=== PATIENT | male | born 1960 | race Caucasian/White ===

== ENCOUNTER 2017-02-15 07:41 | Outpatient (CLI) | payer MEDICAID | END 2017-02-15 07:42 | disposition critical access hospital (66) | LOC: EMS 07:41 | PROVIDERS: ATTEND Surgery | DX: R06.00 Dyspnea, unspecified (principal) | CPT/HCPCS: A0425; A0427 ==

== ENCOUNTER 2017-02-15 07:54 | Inpatient (IN) | payer MEDICAID ==
--- NOTE | 2017-02-15 08:01 | ED Physician Documentation ---
History of Present Illness - Stated complaint Stated Complaint: SOA - Additonal information Additional information: hx from pt and EMS 57 male per EMS was dx with lung cancer a year ago, non operable, txed with chemo, was told he was terminal with life expectancy 3-6 months but he has passed that time frame per pt no POLST all his care has been at [facility] he has been getting gradually more SOA but today acutely worse no fever cough no pain no hx COPD some relief en route with neb and being treated for c diff Review of Systems Constitutional: denies: Fever, Chills Cardiac: denies: Chest pain / pressure Respiratory: reports: Dyspnea, Wheezing. denies: Cough GI: denies: Abdominal Pain, Nausea, Vomiting Musculoskeletal: reports: Extremity swelling (ankles, pt states he has been checked for DVT several times and edema may be 2/2 chemo) Endocrine: denies: Easy bruising / bleeding Immunocompromised: reports: Immunocompromised (chemo) PD PAST MEDICAL HISTORY - Past Surgical History Past Surgical History: Yes - Present Medications Home Medications: Ambulatory Orders Medication Instructions Recorded Confirmed Ibuprofen 800 mg PO Q6HR 09/18/15 02/15/17 Albuterol Sulfate [Proair Hfa 1 puffs INH Q4H PRN 02/15/17 02/15/17 Inhaler] Gabapentin [Gabapentin] 600 mg PO TID 02/15/17 02/15/17 Hydrochlorothiazide 25 mg PO DAILY 02/15/17 02/15/17 [Hydrochlorothiazide] Megestrol Acetate 800 mg PO DAILY 02/15/17 02/15/17 Temazepam [Temazepam] 15 mg PO DAILY PM PRN 02/15/17 02/15/17 fentaNYL 25 MCG PATCH [Duragesic 1 patch TOP Q72H 02/15/17 02/15/17 25mcg] metroNIDAZOLE [Flagyl] 500 mg PO TID 02/15/17 02/15/17 oxyCODONE [Roxicodone] 10 mg PO Q4H PRN 02/15/17 02/15/17 - Allergies Allergies/Adverse Reactions: Allergies Allergy/AdvReac Type Severity Reaction Status Date / Time Penicillins Allergy Respiratory Verified 09/18/15 18:33 - Social History Does the pt smoke?: Yes Smoking Status: Former smoker Does the pt drink ETOH?: Yes Does the pt have substance abuse?: No - Immunizations Immunizations are current?: No Immunizations: TDAP >10years/unknown PD ED PE NORMAL - Vitals Vital signs reviewed: Yes - General General: Alert and oriented X 3, Other (resp distress, anxious) - Neck Neck: Supple, no meningeal sign - Cardiac Cardiac: RRR - Respiratory Respiratory: Other (marked resp distress, labored, very dec on R less dec on L, jaclyn rales and wheezing) - Abdomen Abdomen: Soft, Non tender - Derm Derm: Normal color - Extremities Extremities: No calf tenderness / cord. No: No edema (jaclyn ankle edema - pt states checked for DVT several times) - Neuro Neuro: Alert and oriented X 3 Results - Vitals Vitals: Vital Signs - 24 hr 02/15/17 02/15/17 02/15/17 08:00 08:02 08:35 Temperature 36.6 C Heart Rate 124 H 128 H 124 H Respiratory 34 H 36 H Rate Blood Pressure 138/91 H O2 Saturation 94 02/15/17 02/15/17 02/15/17 09:06 09:36 09:40 Temperature Heart Rate 124 H 121 H 120 H Respiratory 24 Rate Blood Pressure 113/82 H 114/69 O2 Saturation 100 97 02/15/17 10:04 Temperature Heart Rate 120 H Respiratory 30 H Rate Blood Pressure 116/73 O2 Saturation 98 Oxygen O2 Source BIPAP Oxygen Flow Rate 5 - Labs Labs: Microbiology 02/15/17 08:25 Respiratory Culture - Preliminary Sputum Laboratory Tests 02/15/17 02/15/17 02/15/17 08:27 08:27 08:27 WBC 11.5 H RBC 4.39 L Hgb 12.0 L Hct 35.7 L MCV 81.3 MCH 27.3 MCHC 33.5 RDW 17.3 H Plt Count 462 H MPV 6.8 L Neut # 9.9 H Lymph # 0.4 L Roosevelt # 1.1 H Eos # 0.1 Baso # 0.1 Absolute Nucleated RBC 0.03 Nucleated RBCs 0.2 Bld Gas Analysis Time Sample Site ABG pH ABG pCO2 ABG pO2 ABG HCO3 ABG Total CO2 ABG O2 Saturation ABG Base Excess Juan Test O2 Delivery Device FiO2 EPAP IPAP Sodium 127 L Potassium 2.5 L* Chloride 87 L Carbon Dioxide 29 Anion Gap 11.0 BUN 11 Creatinine 0.7 Estimated GFR (MDRD) 116 Glucose 115 H Lactic Acid Calcium 8.5 Troponin I < 0.04 B-Natriuretic Peptide 02/15/17 02/15/17 02/15/17 08:27 08:27 09:37 WBC RBC Hgb Hct MCV MCH MCHC RDW Plt Count MPV Neut # Lymph # Roosevelt # Eos # Baso # Absolute Nucleated RBC Nucleated RBCs Bld Gas Analysis Time 0942 Sample Site RIGHT RADIAL ABG pH 7.55 H ABG pCO2 32 L ABG pO2 118 H ABG HCO3 27.3 H ABG Total CO2 28.2 ABG O2 Saturation 99 H ABG Base Excess 5.3 H Juan Test POSITIVE O2 Delivery Device BiPAP FiO2 35.00 EPAP 5 IPAP 12 Sodium Potassium Chloride Carbon Dioxide Anion Gap BUN Creatinine Estimated GFR (MDRD) Glucose Lactic Acid 0.9 Calcium Troponin I B-Natriuretic Peptide 66 - Rads (name of study) CXR Radiology: See rad report (RUL, R suprahilar mass, NEREYDA and L midlung mass, diffuse reticular nodular appearance, small jaclyn effusons, volume loss right lung ) PD MEDICAL DECISION MAKING - ED course ED course: obtained records from [facility] and PMD seems pt was dx with cancer September 2015 onc note states stage IV non small cell R hilar, mediastinal nodes, bony mets, SVC encasement/obstruction, subsequent CTs showed progression, intial tx with opdivo now on keytruda some improvement with nebs but still sig and severe resp distress, placed on BiPAP with good relief will need admit seen by Dr Martin and admitted while waiting for bed pt told nurse and then me that he tripped and fell yesterday - no head neck injury but low left back pain, has a fentanyl patch but still very uncomfortable, went to see pt, no bony pain, soft tissue TTP L flank s ecchymosis or selling, will apply lido patch and give a dose of dilaudid and check UA for blood, pt also then mentioned his stools have been dark, not visibly bloody, H/H fine, would rec occult blood stools while admitted Departure - Departure Disposition: 66 [facility] DC/Xfer Clinical Impression: Hypokalemia, C. difficile colitis Respiratory failure Qualifiers: Chronicity: acute Respiratory failure complication: unspecified whether with hypoxia or hypercapnia Qualified Code(s): J96.00 - Acute respiratory failure, unspecified whether with hypoxia or hypercapnia Lung cancer Qualifiers: Laterality: unspecified laterality Lung location: unspecified part of lung Qualified Code(s): C34.90 - Malignant neoplasm of unspecified part of unspecified bronchus or lung Discharge Date/Time: 02/15/17 11:50
[2017-02-15] MEDS: ALBUTEROL NEB 2.5 MG/3 ML INH STA ×2 (08:12→09:31)
[2017-02-15] MEDS ORDERED: ALBUTEROL NEB 2.5 MG/3 ML INH ONE (08:13)
[2017-02-15 08:36] LABS: BASOPHILS # (AUTO) 0.1 10^3/uL (0.0-0.1); BASOPHILS % (AUTO) 0.7 %; EOSINOPHILS # (AUTO) 0.1 10^3/uL (0.0-0.7); EOSINOPHILS % (AUTO) 1.1 %; HCT - HEMATOCRIT 35.7 % (42.0-52.0); LYMPHOCYTES # (AUTO) 0.4 10^3/uL (1.5-3.5); LYMPHOCYTES % (AUTO) 3.4 %; MEAN CORPUSCULAR HEMOGLOBIN 27.3 pg (27.0-31.0); MEAN CORPUSCULAR HGB CONC 33.5 g/dL (32.0-36.0); MEAN CORPUSCULAR VOLUME 81.3 fL (80.0-94.0); MEAN PLATELET VOLUME 6.8 fL (7.4-11.4); MONOCYTES # (AUTO) 1.1 10^3/uL (0.0-1.0); MONOCYTES % (AUTO) 9.1 %; NEUTROPHILS # (AUTO) 9.9 10^3/uL (1.5-6.6); NEUTROPHILS % (AUTO) 85.7 %; NUCLEATED RED BLOOD CELLS AUTO 0.2 /100WBC; RED BLOOD COUNT 4.39 10^6/uL (4.70-6.10); RED CELL DISTRIBUTION WIDTH 17.3 % (12.0-15.0); UNCORRECTED WHITE BLOOD COUNT 11.5 x10^3/uL; WHITE BLOOD COUNT 11.5 x10^3/uL (4.8-10.8)
--- NOTE | 2017-02-15 08:36 | XRAY Preliminary Report ---
Exam: XR Chest 1 View IMPRESSION: 1. Right upper lobe, right suprahilar lung mass. Left upper lobe, left midlung mass. 2. Diffuse reticular nodular appearance.. 3. Small bilateral effusions. 4. Volume loss right lung [facility] SITE ID: [id number]
--- NOTE | 2017-02-15 08:38 | XRAY Report ---
EXAM: CHEST RADIOGRAPHY EXAM DATE: 02/15/2017 08:20 AM. CLINICAL HISTORY: Shortness of breath known lung cancer. COMPARISON: None. TECHNIQUE: 1 view. FINDINGS: Lungs/Pleura: Right upper lobe apical density adjacent to right suprahilar mass. Clips or markers in the right upper lung field. Volume loss right chest. Elevated right hemidiaphragm. Diffuse bilateral reticulonodular densities. 3.3 cm left midlung density. 1.8 cm left upper lung density. Small bilateral effusions Mediastinum: Within exam limitations, cardiomediastinal contour is normal. Other: None. IMPRESSION: 1. Right upper lobe, right suprahilar lung mass. Left upper lobe, left midlung mass. 2. Diffuse reticular nodular appearance.. 3. Small bilateral effusions. 4. Volume loss right lung [facility] Referring Provider Line: [phone] SITE ID: [id number]
[2017-02-15 08:47] LABS: CALCIUM 8.5 mg/dL (8.5-10.3); CREATININE 0.7 mg/dL (0.6-1.2); POTASSIUM 2.5 mmol/L (3.5-5.0)
[2017-02-15] MEDS ORDERED: POTASSIUM CHLOR 10 MEQ/100 ML 100 ML IV ONE ×2 (09:08→09:18)
[2017-02-15] MEDS: POTASSIUM CHLORIDE 20 MEQ TABLET PO STA ×2 (09:28→17:39)
[2017-02-15] MEDS ORDERED: POTASSIUM CHLORIDE 20 MEQ TABLET PO ONE (09:31)
[2017-02-15 09:42] LABS: ABG BASE EXCESS 5.3 mmol/L (-2.0-3.0); ABG EXPIRATORY POS AIRWAY P 5 cmH2O; ABG HCO3 27.3 mmol/L (22.0-26.0); ABG INSPIRATORY POS AIRWAY P 12 cmH2O; ABG O2 DEVICE BiPAP; ABG OXYGEN SATURATION 99 % (94-98); ABG PCO2 32 mmHg (34-45); ABG PH 7.55 (7.35-7.45); ABG PO2 118 mmHg (80-100); ABG SITE OF DRAW RIGHT RADIAL; ABG TCO2 28.2 MMOL/L (21.0-29.0); ALLEN TEST POSITIVE
[2017-02-15] MEDS ORDERED: SODIUM CHLORIDE FLUSH 0.9% 10 ML SYRINGE IVP PRN (10:24)
[2017-02-15] MEDS ORDERED: ONDANSETRON 4 MG/2 ML VIAL IVP PRN (10:24)
[2017-02-15] MEDS ORDERED: ACETAMINOPHEN 325 MG TABLET PO PRN (10:24)
[2017-02-15] MEDS ORDERED: methylPREDNISolone SUCCINATE 125 MG/2 ML VIAL IVP STA (10:49)
[2017-02-15 11:20] LABS: BILIRUBIN,URINE NEGATIVE (NEGATIVE); UA CHARGE (STRIP ONLY) YES; UR CULTURE IF IND NOT INDICATED
[2017-02-15] MEDS ORDERED: LIDOCAINE PATCH 5% TOP STA (11:20)
[2017-02-15] MEDS: HYDROmorphone 1 MG/ML SYRINGE IVP STA ×2 (11:31→16:38)
[2017-02-15] MEDS ORDERED: LIDOCAINE PATCH 5% TOP ONE (11:32)
[2017-02-15] MEDS ORDERED: SODIUM CHLORIDE FLUSH 0.9% 10 ML SYRINGE IVP ONE (11:32)
[2017-02-15] MEDS ORDERED: HYDROmorphone 1 MG/ML SYRINGE ONE (11:32)
[2017-02-15] MEDS: NS W/20 MEQ KCL 1,000 ML IV SCH ×2 (12:24→21:08)
[2017-02-15] MEDS: PANTOPRAZOLE 40 MG VIAL IVP SCH (12:25)
[2017-02-15] MEDS: ENOXAPARIN 40 MG/0.4 ML SYRINGE SUBQ SCH (12:26)
[2017-02-15] MEDS: IPRATROPIUM/ALBUTEROL 3 ML NEB INH SCH ×3 (12:58→20:26)
[2017-02-15] MEDS: ALBUTEROL NEB 2.5 MG/3 ML INH SCH ×3 (12:59→20:26)
[2017-02-15] MEDS ORDERED: POTASSIUM CHLORIDE 20 MEQ TABLET PO STA (14:40)
[2017-02-15] MEDS: GABAPENTIN 300 MG CAPSULE PO SCH ×2 (15:13→21:09)
[2017-02-15] MEDS: metroNIDAZOLE 250 MG TABLET PO SCH ×2 (15:15→21:09)
[2017-02-15] MEDS: SODIUM CHLORIDE FLUSH 0.9% 10 ML SYRINGE IVP SCH ×2 (15:15→21:09)
[2017-02-15] MEDS: methylPREDNISolone SUCCINATE 40 MG/ML VIAL IVP SCH ×2 (17:39→21:09)
[2017-02-15] MEDS ORDERED: CHLORHEXIDINE GLUCONATE 15 ML UDC PO SCH (21:00)
[2017-02-15] MEDS: CHLORHEXIDINE GLUCONATE 15 ML UDC PO SCH (21:09)
[2017-02-15] MEDS: oxyCODONE 5 MG TABLET PO PRN (21:10)
[2017-02-15] MEDS: TEMAZEPAM 15 MG CAPSULE PO PRN (22:36)
[2017-02-16] MEDS: IPRATROPIUM/ALBUTEROL 3 ML NEB INH SCH ×5 (00:52→19:30)
[2017-02-16] MEDS: LORazepam 0.5 MG TABLET PO PRN (01:24)
[2017-02-16 05:31] LABS: BASOPHILS % (AUTO) 0.2 %; HCT - HEMATOCRIT 33.3 % (42.0-52.0); HGB - HEMOGLOBIN 11.1 g/dL (14.0-18.0); LYMPHOCYTES % (AUTO) 1.8 %; MEAN CORPUSCULAR HEMOGLOBIN 27.7 pg (27.0-31.0); MEAN CORPUSCULAR HGB CONC 33.4 g/dL (32.0-36.0); MEAN CORPUSCULAR VOLUME 82.7 fL (80.0-94.0); MEAN PLATELET VOLUME 7.1 fL (7.4-11.4); MONOCYTES % (AUTO) 4.3 %; NEUTROPHILS % (AUTO) 93.7 %; RED BLOOD COUNT 4.03 10^6/uL (4.70-6.10); UNCORRECTED WHITE BLOOD COUNT 7.3 x10^3/uL; WHITE BLOOD COUNT 7.3 x10^3/uL (4.8-10.8)
[2017-02-16 05:36] LABS: ALBUMIN/GLOBULIN RATIO 1.1 (1.0-2.2); BILIRUBIN,TOTAL 0.3 mg/dL (0.2-1.0); CALCIUM 8.4 mg/dL (8.5-10.3); CREATININE 0.6 mg/dL (0.6-1.2); MAGNESIUM 1.8 mg/dL (1.7-2.8); PHOSPHORUS 2.4 mg/dL (2.5-4.6); POTASSIUM 4.4 mmol/L (3.5-5.0); TOTAL PROTEIN 5.8 g/dL (6.7-8.2)
[2017-02-16] MEDS: GABAPENTIN 300 MG CAPSULE PO SCH ×3 (06:06→21:27)
[2017-02-16] MEDS: oxyCODONE 5 MG TABLET PO PRN ×3 (06:07→18:17)
[2017-02-16] MEDS: SODIUM CHLORIDE FLUSH 0.9% 10 ML SYRINGE IVP SCH ×3 (06:07→21:28)
[2017-02-16] MEDS: methylPREDNISolone SUCCINATE 40 MG/ML VIAL IVP SCH ×3 (06:07→21:27)
[2017-02-16] MEDS: metroNIDAZOLE 250 MG TABLET PO SCH ×3 (06:07→21:27)
[2017-02-16] MEDS: PANTOPRAZOLE 40 MG VIAL IVP SCH (06:13)
--- NOTE | 2017-02-16 06:20 | HISTORY & PHYSICAL EXAMINATION ---
DATE OF ADMISSION: 02/15/2017 PRIMARY CARE PHYSICIAN: Dr. Martin, oncologist, up in [facility]. CHIEF COMPLAINT: Shortness of breath. IDENTIFYING INFORMATION: The patient is a fair historian despite the fact that he has a CPAP mask in place. His , Lesia, supplies supplementary information. There is also, information obtained in the handoff from Dr. Muñoz , the emergency department physician, as well as personal review of past medical records and data collected in this visit, which are summarized subsequently. All were used in addition to this interview and exam in the evaluation of this person in preparation of this document. HISTORY OF PRESENT ILLNESS: The patient said over the last couple of days he had been having more shortness of breath, and then last night and this morning his shortness of breath severely deteriorated. The patient said he could not even move from side to side without getting extremely short of breath starting at about 0400. EMS was called, brought in the patient, who was evaluated in the emergency department. REVIEW OF SYSTEMS He denies any fever, chills. He has had no cough, no sore throat. He said no chest pain. The patient denies any nausea, vomiting, diarrhea, abdominal pain. the patient has had swelling of his ankles. It comes and goes. He had a DVT ultrasound, which was not present. The patient's rest of the complete review of systems is negative. PAST MEDICAL HISTORY: Remarkable for lung cancer, which he had diagnosed in 2016. He has been on palliative chemotherapy since then. The patient had no other major medical problems before that time. PERSONAL AND SOCIAL HISTORY: [place] He was in the [employer] 10 years. He was a cook. He used to smoke a pack and a half to 2 packs a day. He quit 1-1/2 years ago. Drank moderate alcohol 1-2 drinks a day, weekends more. FAMILY HISTORY: Negative for diabetes, negative for heart disease. Has a sister of breast cancer. ALLERGIES: PENICILLIN. MEDICATIONS Are 1. Megace 800 mg a day. 2. Metronidazole 500 mg t.i.d. 3. Albuterol inhaler every 4 hours as needed. 4. Oxycodone 10 mg every 4 hours as needed. 5. Fentanyl patch, which his says he has been acting funny mentally, was on 25 she cut it last time to a half of one. 6. Hydrochlorothiazide 25 mg a day. 7. Gabapentin 600 mg 3 times a day. 8. Temazepam 15 mg a day at bedtime. 9. Ibuprofen 800 mg every 6 hours. PHYSICAL EXAMINATION VITAL SIGNS: Temperature 36.6, 128, 36, 130/91, O2 saturation 94% on high flow oxygen. Subsequently, the patient was on BiPAP. GENERAL CONSTITUTIONAL: Well-developed, well-nourished male. Says he has lost a lot of weight in the last 2 weeks. Appears stated age. EYES: EOMs within normal limits. PERRL. Nonicteric. MOUTH AND THROAT: Moist mucous membranes. No other pathology noted in the mouth or pharynx. NECK: No lymphadenopathy, no thyromegaly. LUNGS: Clear, good air movement, except he has rales on the right side, some rhonchi scattered and prolonged expiration. HEART: Sinus tachycardia. No murmur, rubs, clicks heard. ABDOMEN: Soft, nontender, normal bowel sounds. No hepatosplenomegaly. RECTAL/GENITAL: Exams not done. EXTREMITIES: He has 2+ edema of 2/3 of the lower legs. There is no erythema or rash. VASCULAR: He has palpable posterior tibial pulses bilaterally. No cyanosis. NEUROLOGIC: Cognition intact. Cranial nerves intact. Motor intact. Gait was not tested. LABORATORY DATA: White count 7.5, 12 and 35.7 hemoglobin and hematocrit, platelets at 462. His sodium was 127, potassium is 2.5, chloride 87, CO2 of 29, BUN 11, creatinine 0.3, glucose is 115, calcium 8.5. Troponin less than 0.4. Lactate 0.9. BNP is 66. The patient's chest x-ray, impression: 1. Right upper lobe right suprahilar lung mass. Left upper lobe and left mid lung mass. 2. Diffuse reticular nodular pattern. 3. Small bilateral effusions. 4. Volume loss of the right lung. SUMMARY: This is a 57-year-old male diagnosed over a year ago with inoperable terminal cancer of the lung, who has been getting palliative chemotherapy since then. He has developed increasing shortness breath over the last 2 days and was in extremis over the last number of hours. The patient was found to be in acute respiratory failure and was placed on BiPAP and was found to have increased lung cancer. No clear pneumonia though there is a nodular pattern in the lungs. DIAGNOSES 1. Acute respiratory failure. 2. Chronic obstructive pulmonary disease with exacerbation. 3. Diffuse lung cancer, multiple lobes. 4. Hypokalemia. 5. Previous tobacco abuse. DISCUSSION/DECISION MAKING 1. Acute respiratory failure will be treated with steroids, beta agonists, oxygen and BiPAP support. We will try to improve his respiratory status enough to be able to discontinue the BiPAP, although it is questionable at this time. 2. The patient's COPD exacerbation will be treated as noted in #1 with transition to long-acting beta agonists and oral steroids if possible. 3. The diffuse lung cancer is being treated palliatively, and discussion of end- of-life needs to be conducted. 4. The patient's hypokalemia will be treated with IV replacement initially and then oral replacement. 5. Previous tobacco abuse, diagnosis #5, will need no further treatment at this time. HOSPITAL ISSUES 1. CODE STATUS: STILL NEEDS TO BE ADDRESSED. He is in extremis at the time of exam. 2. Venous thromboembolism prophylaxis, which will be with Lovenox. 3. Diet will be regular as tolerated, needs to be encouraged. He has had very poor oral intake. 4. Activity, which will be guided by his respiratory failure and improvement therein. 5. Tubes and lines: He will have only the peripheral IV at this juncture. 6. Hospital status: He is inpatient status, needing more than 2 nights given his acute respiratory failure and needing intensive inpatient diagnostic and therapeutic treatment. 7. Estimated length of stay is 3 nights. 8. Disposition, which is expected to be home unless there is deterioration. JOB #: [id number] EXT JOB #:[id number] MTDD
[2017-02-16 06:23] LABS: ABG PH 7.47 (7.35-7.45)
[2017-02-16 06:24] LABS: ABG BASE EXCESS 2.7 mmol/L (-2.0-3.0); ABG EXPIRATORY POS AIRWAY P 5 cmH2O; ABG HCO3 26.4 mmol/L (22.0-26.0); ABG INSPIRATORY POS AIRWAY P 10 cmH2O; ABG O2 DEVICE BiPAP; ABG OXYGEN SATURATION 99 % (94-98); ABG PCO2 37 mmHg (34-45); ABG PO2 135 mmHg (80-100); ABG RESPIRATORY RATE 12 b/min; ABG SITE OF DRAW RIGHT RADIAL; ABG TCO2 27.6 MMOL/L (21.0-29.0); ALLEN TEST POSITIVE
[2017-02-16 06:42] LABS: BAND NEUTROPHILS % (MANUAL) 5 %; LYMPHOCYTES % (MANUAL) 3 %; NEUTROPHILS % (MANUAL) 90 %; NP AUTO DIFFERENTIAL? YES; NP MAN DIFFERENTIAL? NO; PLATELET ESTIMATE, MANUAL NORMAL (130-450,000) (NORMAL); TOTAL CELLS COUNTED 100
[2017-02-16] MEDS ORDERED: PANTOPRAZOLE 40 MG VIAL IVP SCH ×2 (07:00)
--- NOTE | 2017-02-16 07:26 | XRAY Preliminary Report ---
Exam: XR Chest 1 View IMPRESSION: Large right upper lobe mass with volume loss with extensive interstitial infiltrate/edema . Elevated right hemidiaphragm suggesting subpulmonic effusion. Small left pleural effusion. Patchy nodular areas left chest less apparent than on yesterday's exam suggesting areas of minimal pn eumonia. Contrast-enhanced chest CT should be considered for further assessment if this has not been previousl y performed. [facility] SITE ID: [id number]
--- NOTE | 2017-02-16 07:29 | XRAY Report ---
EXAM: CHEST RADIOGRAPHY, PORTABLE ONE VIEW EXAM DATE: 02/16/2017 06:20 AM. CLINICAL HISTORY: 57-year-old male with respiratory distress on BIPAP. COMPARISON: Similar exam of yesterday. No earlier exams available for comparison. TECHNIQUE: 06-1 hour AP upright portable view. FINDINGS: Lungs/Pleura: Masslike density right upper chest with volume loss, as previously with moderate elevat ion right hemidiaphragm. Question of chronic lung disease versus extensive interstitial edema. Patchy nodular opacities left chest slightly less prominent than previously, more suggestive of areas of pn eumonia than masses. Small left pleural effusion noted, stable. No pneumothorax. Mediastinum: Heart size is normal. Abnormality of the right hilus and right paratracheal region consi stent with mass, similar to yesterday with right-sided volume loss. No left hilar mass or adenopathy. Pulmonary vascularity difficult to evaluate, may be mildly to moderately dilated. Other: Trachea is deviated slightly to the right. Osseous structures show no acute process or metasta tic disease. Vascular stent seen in the right upper chest in the area of mass, likely within the SVC, difficult to fully evaluate but grossly stable in appearance. IMPRESSION: Large right upper lobe mass with volume loss with extensive interstitial infiltrate/edema . Elevated right hemidiaphragm suggesting subpulmonic effusion. Small left pleural effusion. Patchy nodular areas left chest less apparent than on yesterday's exam suggesting areas of minimal pn eumonia. Contrast-enhanced chest CT should be considered for further assessment if this has not been previousl y performed. [facility] Referring Provider Line: [phone] SITE ID: [id number]
[2017-02-16] MEDS: ALBUTEROL NEB 2.5 MG/3 ML INH SCH ×4 (07:47→19:30)
[2017-02-16] MEDS: ENOXAPARIN 40 MG/0.4 ML SYRINGE SUBQ SCH (08:16)
[2017-02-16] MEDS: CHLORHEXIDINE GLUCONATE 15 ML UDC PO SCH ×2 (08:16→21:27)
[2017-02-16] MEDS: NS W/20 MEQ KCL 1,000 ML IV SCH ×2 (08:25→18:09)
[2017-02-16] MEDS: NEUTRA-PHOS 250 MG TABLET PO SCH ×2 (08:45→11:15)
[2017-02-16] MEDS: MEGESTROL 400 MG/10 ML UDC PO SCH (08:45)
[2017-02-16] MEDS: hydroCHLOROthiazide 25 MG TABLET PO SCH (08:46)
[2017-02-16] MEDS ORDERED: LORazepam 0.5 MG TABLET PO PRN (09:23)
--- NOTE | 2017-02-16 17:20 | PROVIDER PROGRESS NOTE ---
Assessment/Plan - Problem List (1) C. difficile colitis Assessment/Plan: He has not had anymore diarrhea He needs a few more days of treatment. (2) Lung cancer Qualifiers: Laterality: unspecified laterality Lung location: unspecified part of lung Qualified Code(s): C34.90 - Malignant neoplasm of unspecified part of unspecified bronchus or lung Assessment/Plan: No new treatment. Will get CXR in am. (3) Respiratory failure Qualifiers: Chronicity: acute Respiratory failure complication: unspecified whether with hypoxia or hypercapnia Qualified Code(s): J96.00 - Acute respiratory failure, unspecified whether with hypoxia or hypercapnia Assessment/Plan: He has improved and been off the BIPAP most of the day. Will continue the B agonists and steroids. - Current Meds Current Meds: Current Medications Generic Name Dose Route Start Last Admin Trade Name Freq PRN Reason Stop Dose Admin Albuterol 2.5 mg 02/15/17 11:00 02/16/17 09:08 INH Not Given RTQ4H DANIELA Albuterol/Ipratropium 3 ml 02/15/17 11:00 02/16/17 16:08 Duoneb INH 3 ml RTQ4H DANIELA Administration Chlorhexidine Gluconate 15 ml 02/15/17 21:00 02/16/17 08:16 Peridex PO 15 ml BID DANIELA Administration Enoxaparin Sodium 40 mg 02/15/17 11:00 02/16/17 08:16 Lovenox SUBQ 40 mg DAILY DANIELA Administration Gabapentin 600 mg 02/15/17 14:00 02/16/17 13:37 Neurontin PO 600 mg TID DANIELA Administration Hydrochlorothiazide 25 mg 02/16/17 09:00 02/16/17 08:46 Hydrodiuril PO 25 mg DAILY DANIELA Administration Potassium Chloride/Sodium Chloride 1,000 mls @ 100 mls/hr 02/15/17 11:00 08:25 Normal Saline 0.9% W/20 Meq Kcl IV 100 mls/hr .Q10H DANIELA Administration Lorazepam 0.5 mg 02/15/17 21:06 02/16/17 01:24 Ativan PO 0.5 mg QPM PRN Administration Insomnia Megestrol Acetate 800 mg 02/16/17 09:00 02/16/17 08:45 Megace PO 800 mg DAILY DANIELA Administration Methylprednisolone 40 mg 02/15/17 17:00 02/16/17 13:37 Solu-Medrol (40mg Vial) IVP 40 mg TID DANIELA Administration Metronidazole 500 mg 02/15/17 14:00 02/16/17 13:37 Flagyl PO 500 mg TID DANIELA Administration Oxycodone HCl 10 mg 02/15/17 13:55 02/16/17 11:15 Roxicodone PO 10 mg Q4H PRN Administration PAIN Pantoprazole Sodium 40 mg 02/15/17 11:00 02/16/17 06:13 Protonix IVP 40 mg QDAC DANIELA Administration Sodium Chloride 10 ml 02/15/17 10:24 02/15/17 12:25 Normal Saline Flush 0.9% IVP 10 ml PRN PRN Administration NEEDED PER PROVIDER ORDERS Sodium Chloride 10 ml 02/15/17 14:00 02/16/17 13:37 Normal Saline Flush 0.9% IVP Not Given Q8HR DANIELA Temazepam 15 mg 02/15/17 13:55 02/15/17 22:36 Restoril PO 15 mg 2100 PRN Administration Insomnia - Lab Result Fish Bone Diagrams: 02/16/17 05:11 02/16/17 05:11 - Additional Planning My Orders: My Active Orders 02/15/17 17:00 methylPREDNISolone SUCCINATE [SOLU-Medrol (40MG VIAL)] 40 mg IVP TID 02/16/17 09:00 Megestrol [Megace] 800 mg PO DAILY hydroCHLOROthiazide [Hydrodiuril] 25 mg PO DAILY 02/16/17 09:23 LORazepam [Ativan] 0.5 mg PO Q6H PRN Subjective - Subjective Patient Reports: Feeling Better, Shortness of Breath Nursing Reports: Shortness of Breath Objective Vital Signs: Vital Signs - 24 hr 02/15/17 02/15/17 02/15/17 18:00 18:35 19:00 Temperature Heart Rate 122 H Heart Rate [ 124 H 118 H Monitoring electrodes] Respiratory 24 24 Rate Blood Pressure 117/79 103/73 [Right Brachial artery] O2 Saturation 92 95 02/15/17 02/15/17 02/15/17 20:00 20:21 20:27 Temperature 36.9 C Heart Rate 116 H 118 H Heart Rate [ 110 H Monitoring electrodes] Respiratory 26 H 24 Rate Blood Pressure 96/71 [Right Brachial artery] O2 Saturation 96 02/15/17 02/15/17 02/15/17 21:00 22:00 22:39 Temperature Heart Rate 112 H Heart Rate [ 120 H 113 H Monitoring electrodes] Respiratory 35 H 21 Rate Blood Pressure 114/85 H 113/75 [Right Brachial artery] O2 Saturation 93 94 02/15/17 02/16/17 02/16/17 23:00 00:00 00:43 Temperature 36.1 C L Heart Rate 106 H Heart Rate [ 106 H 104 H Monitoring electrodes] Respiratory 20 18 Rate Blood Pressure 106/79 107/70 [Right Brachial artery] O2 Saturation 92 96 02/16/17 02/16/17 02/16/17 00:54 01:00 02:00 Temperature Heart Rate 109 H Heart Rate [ 110 H 108 H Monitoring electrodes] Respiratory 19 22 21 Rate Blood Pressure 122/91 H 114/81 H [Right Brachial artery] O2 Saturation 97 97 02/16/17 02/16/17 02/16/17 03:00 04:00 05:00 Temperature 36.4 C L Heart Rate 112 H Heart Rate [ 110 H 110 H 116 H Monitoring electrodes] Respiratory 23 18 20 Rate Blood Pressure 121/82 H 109/75 128/85 H [Right Brachial artery] O2 Saturation 95 94 95 02/16/17 02/16/17 02/16/17 05:03 05:05 06:00 Temperature Heart Rate 110 H 111 H Heart Rate [ 114 H Monitoring electrodes] Respiratory 23 26 H Rate Blood Pressure 123/80 [Right Brachial artery] O2 Saturation 93 02/16/17 02/16/17 02/16/17 07:00 08:00 08:55 Temperature 37.2 C Heart Rate Heart Rate [ 112 H 119 H 124 H Monitoring electrodes] Respiratory 23 24 Rate Blood Pressure 111/80 127/99 H 106/96 H [Right Brachial artery] O2 Saturation 95 92 93 02/16/17 02/16/17 02/16/17 09:09 09:50 10:29 Temperature Heart Rate 116 H 123 H Heart Rate [ 123 H Monitoring electrodes] Respiratory 22 29 H Rate Blood Pressure 128/93 H [Right Brachial artery] O2 Saturation 93 02/16/17 02/16/17 02/16/17 11:00 11:59 13:00 Temperature 37.3 C Heart Rate Heart Rate [ 120 H 122 H 122 H Monitoring electrodes] Respiratory 28 H 22 20 Rate Blood Pressure 123/94 H 123/94 H [Right Brachial artery] O2 Saturation 96 91 L 93 02/16/17 02/16/17 02/16/17 14:00 14:56 15:45 Temperature 36.8 C Heart Rate Heart Rate [ 117 H 124 H 119 H Monitoring electrodes] Respiratory 27 H 22 23 Rate Blood Pressure 115/87 H 115/87 H [Right Brachial artery] O2 Saturation 95 98 92 02/16/17 16:09 Temperature Heart Rate 117 H Heart Rate [ Monitoring electrodes] Respiratory 22 Rate Blood Pressure [Right Brachial artery] O2 Saturation Oxygen O2 Source Nasal cannula I&O (Last 24 Hrs): Intake and Output Totals x24h 02/14/17 02/15/17 02/16/17 23:59 23:59 23:59 Intake Total 2420 3200 Output Total 200 1225 Balance 2220 1975 General: Alert, Oriented x3, Cooperative HEENT: PERRLA, EOMI Neck: No thyromegaly Neuro: Alert, Oriented Times 3 Cardiovascular: Regular rate Respiratory: Rales, Rhonchi Abdomen: Normal bowel sounds, Soft - Results Results: Laboratory Results WBC 7.3 x10^3/uL (4.8-10.8) 02/16/17 05:11 RBC 4.03 10^6/uL (4.70-6.10) L 02/16/17 05:11 Hgb 11.1 g/dL (14.0-18.0) L 02/16/17 05:11 Hct 33.3 % (42.0-52.0) L 02/16/17 05:11 MCV 82.7 fL (80.0-94.0) 02/16/17 05:11 MCH 27.7 pg (27.0-31.0) 02/16/17 05:11 MCHC 33.4 g/dL (32.0-36.0) 02/16/17 05:11 RDW 17.0 % (12.0-15.0) H 02/16/17 05:11 Plt Count 391 10^3/uL (130-450) 02/16/17 05:11 MPV 7.1 fL (7.4-11.4) L 02/16/17 05:11 Neut # Not Reportable 02/16/17 05:11 Lymph # Not Reportable 02/16/17 05:11 [place] # Not Reportable 02/16/17 05:11 Eos # Not Reportable 02/16/17 05:11 Baso # Not Reportable 02/16/17 05:11 Absolute Nucleated RBC Not Reportable 02/16/17 05:11 Total Counted 100 02/16/17 05:11 Band Neuts % (Manual) 5 % (0-10) 02/16/17 05:11 Neutrophils # (Manual) 6.9 10^3/uL (1.5-6.6) H 02/16/17 05:11 Lymphocytes # (Manual) 0.2 10^3/uL (1.5-3.5) L 02/16/17 05:11 Monocytes # (Manual) 0.1 10^3/uL (0.0-1.0) 02/16/17 05:11 Nucleated RBCs Not Reportable 02/16/17 05:11 Differential Comment MANUAL DIFFERENTIAL 02/16/17 05:11 Platelet Estimate NORMAL (130-450,000) (NORMAL) 02/16/17 05:11 RBC Morph Micro Appear NORMAL APPEARANCE (NORMAL) 02/16/17 05:11 Bld Gas Analysis Time 0621 02/16/17 06:07 Sample Site RIGHT RADIAL 02/16/17 06:07 ABG pH 7.47 (7.35-7.45) H 02/16/17 06:07 ABG pCO2 37 mmHg (34-45) 02/16/17 06:07 ABG pO2 135 mmHg (80-100) H 02/16/17 06:07 ABG HCO3 26.4 mmol/L (22.0-26.0) H 02/16/17 06:07 ABG Total CO2 27.6 MMOL/L (21.0-29.0) 02/16/17 06:07 ABG O2 Saturation 99 % (94-98) H 02/16/17 06:07 ABG Base Excess 2.7 mmol/L (-2.0-3.0) 02/16/17 06:07 Juan Test POSITIVE 02/16/17 06:07 Respiration Rate 12 b/min 02/16/17 06:07 O2 Delivery Device BiPAP 02/16/17 06:07 FiO2 40.00 02/16/17 06:07 EPAP 5 cmH2O 02/16/17 06:07 IPAP 10 cmH2O 02/16/17 06:07 Sodium 132 mmol/L (135-145) L 02/16/17 05:11 Potassium 4.4 mmol/L (3.5-5.0) 02/16/17 05:11 Chloride 100 mmol/L (101-111) L 02/16/17 05:11 Carbon Dioxide 27 mmol/L (21-32) 02/16/17 05:11 Anion Gap 5.0 (6-13) L 02/16/17 05:11 BUN 10 mg/dL (6-20) 02/16/17 05:11 Creatinine 0.6 mg/dL (0.6-1.2) 02/16/17 05:11 Estimated GFR (MDRD) 138 (>89) 02/16/17 05:11 Glucose 189 mg/dL (70-100) H 02/16/17 05:11 Lactic Acid 0.9 mmol/L (0.5-2.2) 02/15/17 08:27 Calcium 8.4 mg/dL (8.5-10.3) L 02/16/17 05:11 Phosphorus 2.4 mg/dL (2.5-4.6) L 02/16/17 05:11 Magnesium 1.8 mg/dL (1.7-2.8) 02/16/17 05:11 Total Bilirubin 0.3 mg/dL (0.2-1.0) 02/16/17 05:11 AST 12 IU/L (10-42) 02/16/17 05:11 ALT 12 IU/L (10-60) 02/16/17 05:11 Alkaline Phosphatase 54 IU/L (42-121) 02/16/17 05:11 Troponin I < 0.04 ng/mL (<0.49) 02/15/17 08:27 B-Natriuretic Peptide 66 pg/mL (5-100) 02/15/17 08:27 Total Protein 5.8 g/dL (6.7-8.2) L 02/16/17 05:11 Albumin 3.0 g/dL (3.2-5.5) L 02/16/17 05:11 Globulin 2.8 g/dL (2.1-4.2) 02/16/17 05:11 Albumin/Globulin Ratio 1.1 (1.0-2.2) 02/16/17 05:11 Urine Color DARK YELLOW 02/15/17 11:06 Urine Clarity CLEAR (CLEAR) 02/15/17 11:06 Urine pH 6.0 PH (5.0-7.5) 02/15/17 11:06 Ur Specific [place] 1.020 (1.002-1.030) 02/15/17 11:06 Urine Protein NEGATIVE mg/dL (NEGATIVE) 02/15/17 11:06 Urine Glucose (UA) NEGATIVE mg/dL (NEGATIVE) 02/15/17 11:06 Urine Ketones 40 mg/dL (NEGATIVE) H 02/15/17 11:06 Urine Occult Blood NEGATIVE (NEGATIVE) 02/15/17 11:06 Urine Nitrite NEGATIVE (NEGATIVE) 02/15/17 11:06 Urine Bilirubin NEGATIVE (NEGATIVE) 02/15/17 11:06 Urine Urobilinogen 0.2 (NORMAL) E.U./dL (NORMAL) 02/15/17 11:06 Ur Leukocyte Esterase NEGATIVE (NEGATIVE) 02/15/17 11:06 Ur Microscopic Review NOT INDICATED 02/15/17 11:06 Urine Culture Comments NOT INDICATED 02/15/17 11:06
[2017-02-17] MEDS: oxyCODONE 5 MG TABLET PO PRN ×5 (00:29→22:25)
[2017-02-17] MEDS: TEMAZEPAM 15 MG CAPSULE PO PRN (00:30)
[2017-02-17] MEDS: LORazepam 0.5 MG TABLET PO PRN (02:07)
[2017-02-17] MEDS: NS W/20 MEQ KCL 1,000 ML IV SCH ×2 (04:16→14:03)
[2017-02-17 05:37] LABS: BASOPHILS % (AUTO) 0.1 %; HCT - HEMATOCRIT 33.6 % (42.0-52.0); HGB - HEMOGLOBIN 10.8 g/dL (14.0-18.0); LYMPHOCYTES # (AUTO) 0.3 10^3/uL (1.5-3.5); LYMPHOCYTES % (AUTO) 1.9 %; MEAN CORPUSCULAR HEMOGLOBIN 27.1 pg (27.0-31.0); MEAN CORPUSCULAR HGB CONC 32.2 g/dL (32.0-36.0); MEAN CORPUSCULAR VOLUME 83.9 fL (80.0-94.0); MEAN PLATELET VOLUME 7.3 fL (7.4-11.4); MONOCYTES # (AUTO) 0.8 10^3/uL (0.0-1.0); MONOCYTES % (AUTO) 5.7 %; NEUTROPHILS # (AUTO) 12.5 10^3/uL (1.5-6.6); NEUTROPHILS % (AUTO) 92.3 %; RED CELL DISTRIBUTION WIDTH 17.6 % (12.0-15.0); UNCORRECTED WHITE BLOOD COUNT 13.5 x10^3/uL; WHITE BLOOD COUNT 13.5 x10^3/uL (4.8-10.8)
[2017-02-17 05:45] LABS: BILIRUBIN,TOTAL 0.4 mg/dL (0.2-1.0); CALCIUM 8.3 mg/dL (8.5-10.3); CREATININE 0.6 mg/dL (0.6-1.2); MAGNESIUM 1.8 mg/dL (1.7-2.8); PHOSPHORUS 2.6 mg/dL (2.5-4.6); POTASSIUM 4.6 mmol/L (3.5-5.0); TOTAL PROTEIN 5.9 g/dL (6.7-8.2)
[2017-02-17] MEDS: methylPREDNISolone SUCCINATE 40 MG/ML VIAL IVP SCH ×3 (06:02→21:28)
[2017-02-17] MEDS: GABAPENTIN 300 MG CAPSULE PO SCH ×3 (06:02→21:28)
[2017-02-17] MEDS: PANTOPRAZOLE 40 MG VIAL IVP SCH (06:02)
[2017-02-17] MEDS: metroNIDAZOLE 250 MG TABLET PO SCH ×3 (06:02→21:28)
[2017-02-17] MEDS: SODIUM CHLORIDE FLUSH 0.9% 10 ML SYRINGE IVP SCH ×3 (06:02→21:29)
[2017-02-17 06:04] LABS: ABG HCO3 28.8 mmol/L (22.0-26.0); ABG OXYGEN SATURATION 97 % (94-98); ABG PCO2 44 mmHg (34-45); ABG PH 7.43 (7.35-7.45); ABG PO2 94 mmHg (80-100); ABG TCO2 30.2 MMOL/L (21.0-29.0); ALLEN TEST POSITIVE
[2017-02-17 06:05] LABS: ABG O2 DEVICE NASAL CANNULA; ABG SATURATION PULSE OXIMETRY% 94 %; ABG SITE OF DRAW RIGHT RADIAL
[2017-02-17] MEDS: IPRATROPIUM/ALBUTEROL 3 ML NEB INH SCH ×4 (07:30→20:00)
[2017-02-17] MEDS: ENOXAPARIN 40 MG/0.4 ML SYRINGE SUBQ SCH (08:38)
[2017-02-17] MEDS: CHLORHEXIDINE GLUCONATE 15 ML UDC PO SCH ×2 (08:38→21:28)
[2017-02-17] MEDS: MEGESTROL 400 MG/10 ML UDC PO SCH (08:40)
[2017-02-17] MEDS: hydroCHLOROthiazide 25 MG TABLET PO SCH (08:40)
--- NOTE | 2017-02-17 16:30 | PROVIDER PROGRESS NOTE ---
Assessment/Plan - Problem List (1) C. difficile colitis Assessment/Plan: no watery poop will finish the flagyl course. (2) Lung cancer Qualifiers: Laterality: unspecified laterality Lung location: unspecified part of lung Qualified Code(s): C34.90 - Malignant neoplasm of unspecified part of unspecified bronchus or lung Assessment/Plan: no Rx at this time. (3) Respiratory failure Qualifiers: Chronicity: acute Respiratory failure complication: unspecified whether with hypoxia or hypercapnia Qualified Code(s): J96.00 - Acute respiratory failure, unspecified whether with hypoxia or hypercapnia Assessment/Plan: His O2 has improved. on 3 liters but needs 5 liters with any exertion. - Current Meds Current Meds: Current Medications Generic Name Dose Route Start Last Admin Trade Name Freq PRN Reason Stop Dose Admin Acetaminophen 650 mg 02/15/17 10:24 02/16/17 18:16 Tylenol PO 650 mg Q4HR PRN Administration Pain 1 to 4 Albuterol/Ipratropium 3 ml 02/15/17 11:00 02/17/17 16:00 Duoneb INH 3 ml RTQ4H DANIELA Administration Chlorhexidine Gluconate 15 ml 02/15/17 21:00 02/17/17 08:38 Peridex PO 15 ml BID DANIELA Administration Enoxaparin Sodium 40 mg 02/15/17 11:00 02/17/17 08:38 Lovenox SUBQ 40 mg DAILY DANIELA Administration Gabapentin 600 mg 02/15/17 14:00 02/17/17 14:03 Neurontin PO 600 mg TID DANIELA Administration Hydrochlorothiazide 25 mg 02/16/17 09:00 02/17/17 08:40 Hydrodiuril PO 25 mg DAILY DANIELA Administration Potassium Chloride/Sodium Chloride 1,000 mls @ 100 mls/hr 02/15/17 11:00 14:03 Normal Saline 0.9% W/20 Meq Kcl IV 100 mls/hr .Q10H DANIELA Administration Lorazepam 0.5 mg 02/15/17 21:06 02/17/17 02:07 Ativan PO 0.5 mg QPM PRN Administration Insomnia Megestrol Acetate 800 mg 02/16/17 09:00 02/17/17 08:40 Megace PO 800 mg DAILY DANIELA Administration Methylprednisolone 40 mg 02/15/17 17:00 02/17/17 14:03 Solu-Medrol (40mg Vial) IVP 40 mg TID ADNIELA Administration Metronidazole 500 mg 02/15/17 14:00 02/17/17 14:03 Flagyl PO 500 mg TID DANIELA Administration Oxycodone HCl 10 mg 02/15/17 13:55 02/17/17 11:54 Roxicodone PO 10 mg Q4H PRN Administration PAIN Pantoprazole Sodium 40 mg 02/15/17 11:00 02/17/17 06:02 Protonix IVP 40 mg QDAC DANIELA Administration Sodium Chloride 10 ml 02/15/17 10:24 02/15/17 12:25 Normal Saline Flush 0.9% IVP 10 ml PRN PRN Administration NEEDED PER PROVIDER ORDERS Sodium Chloride 10 ml 02/15/17 14:00 02/17/17 14:04 Normal Saline Flush 0.9% IVP Not Given Q8HR DANIELA Temazepam 15 mg 02/15/17 13:55 02/17/17 00:30 Restoril PO 15 mg 2100 PRN Administration Insomnia - Lab Result Fish Bone Diagrams: 02/17/17 04:48 02/17/17 04:48 - Additional Planning My Orders: My Active Orders 02/17/17 08:37 O2 [Oxygen Desat. Study w/Exercise] [RC] .ONCE Subjective - Subjective Patient Reports: Resting Comfortably, Shortness of Breath Nursing Reports: Shortness of Breath Objective Vital Signs: Vital Signs - 24 hr 02/16/17 02/16/17 02/16/17 17:00 18:00 18:57 Temperature Heart Rate Heart Rate [ 124 H 119 H 118 H Monitoring electrodes] Respiratory 23 25 H 98 H Rate Blood Pressure 120/84 H 124/87 H 115/72 [Right Brachial artery] O2 Saturation 93 94 24 L 02/16/17 02/16/17 02/16/17 19:30 20:00 21:00 Temperature 37.1 C Heart Rate 118 H Heart Rate [ 122 H 120 H Monitoring electrodes] Respiratory 24 23 23 Rate Blood Pressure 121/84 H 113/74 [Right Brachial artery] O2 Saturation 94 94 02/16/17 02/16/17 02/17/17 22:00 23:00 00:00 Temperature Heart Rate Heart Rate [ 118 H 116 H 117 H Monitoring electrodes] Respiratory 25 H 28 H 21 Rate Blood Pressure 120/77 119/89 H 130/93 H [Right Brachial artery] O2 Saturation 94 94 94 02/17/17 02/17/17 02/17/17 01:00 02:00 03:00 Temperature Heart Rate Heart Rate [ 113 H 115 H 115 H Monitoring electrodes] Respiratory 25 H 20 25 H Rate Blood Pressure 133/89 H 142/94 H 140/92 H [Right Brachial artery] O2 Saturation 96 96 97 02/17/17 02/17/17 02/17/17 04:00 05:00 06:00 Temperature 37.1 C Heart Rate Heart Rate [ 116 H 113 H 119 H Monitoring electrodes] Respiratory 24 20 25 H Rate Blood Pressure 127/95 H 126/93 H 134/98 H [Right Brachial artery] O2 Saturation 93 96 98 02/17/17 02/17/17 02/17/17 07:00 07:30 07:42 Temperature 37.3 C Heart Rate 115 H Heart Rate [ 112 H 114 H Monitoring electrodes] Respiratory 18 20 23 Rate Blood Pressure 146/91 H 146/91 H [Right Brachial artery] O2 Saturation 95 94 02/17/17 02/17/17 02/17/17 08:00 09:00 10:00 Temperature Heart Rate Heart Rate [ 117 H 119 H 116 H Monitoring electrodes] Respiratory 21 22 21 Rate Blood Pressure 136/91 H 126/90 H 125/90 H [Right Brachial artery] O2 Saturation 93 92 93 02/17/17 02/17/17 02/17/17 11:00 12:00 13:00 Temperature Heart Rate 114 H Heart Rate [ 123 H 119 H 119 H Monitoring electrodes] Respiratory 19 26 H 23 Rate Blood Pressure 138/92 H 118/87 H 112/98 H [Right Brachial artery] O2 Saturation 92 93 94 02/17/17 02/17/17 02/17/17 13:24 14:00 15:00 Temperature 36.8 C Heart Rate Heart Rate [ 120 H 116 H 115 H Monitoring electrodes] Respiratory 15 22 29 H Rate Blood Pressure 116/86 H 134/93 H [Right Brachial artery] O2 Saturation 92 92 94 02/17/17 16:00 Temperature Heart Rate 111 H Heart Rate [ Monitoring electrodes] Respiratory 22 Rate Blood Pressure [Right Brachial artery] O2 Saturation Oxygen O2 Source Nasal cannula I&O (Last 24 Hrs): Intake and Output Totals x24h 08/02/16/17 02/17/17 23:59 23:59 23:59 Intake Total 2420 4360 2610 Output Total 200 1545 1400 Balance 2220 2815 1210 General: Alert, Oriented x3, Cooperative, Mild distress HEENT: PERRLA, EOMI Neuro: Alert, Oriented Times 3 Cardiovascular: Other (tachycardic continuously.) Respiratory: Rales, Rhonchi Abdomen: Normal bowel sounds, No tenderness Skin: No rashes, No breakdown - Results Results: Laboratory Results WBC 13.5 x10^3/uL (4.8-10.8) H 02/17/17 04:48 RBC 4.00 10^6/uL (4.70-6.10) L 02/17/17 04:48 Hgb 10.8 g/dL (14.0-18.0) L 02/17/17 04:48 Hct 33.6 % (42.0-52.0) L 02/17/17 04:48 MCV 83.9 fL (80.0-94.0) 02/17/17 04:48 MCH 27.1 pg (27.0-31.0) 02/17/17 04:48 MCHC 32.2 g/dL (32.0-36.0) 02/17/17 04:48 RDW 17.6 % (12.0-15.0) H 02/17/17 04:48 Plt Count 444 10^3/uL (130-450) 02/17/17 04:48 MPV 7.3 fL (7.4-11.4) L 02/17/17 04:48 Neut # 12.5 10^3/uL (1.5-6.6) H 02/17/17 04:48 Lymph # 0.3 10^3/uL (1.5-3.5) L 02/17/17 04:48 [place] # 0.8 10^3/uL (0.0-1.0) 02/17/17 04:48 Eos # 0.0 10^3/uL (0.0-0.7) 02/17/17 04:48 Baso # 0.0 10^3/uL (0.0-0.1) 02/17/17 04:48 Absolute Nucleated RBC 0.00 x10^3/uL 02/17/17 04:48 Total Counted 100 02/16/17 05:11 Band Neuts % (Manual) 5 % (0-10) 02/16/17 05:11 Neutrophils # (Manual) 6.9 10^3/uL (1.5-6.6) H 02/16/17 05:11 Lymphocytes # (Manual) 0.2 10^3/uL (1.5-3.5) L 02/16/17 05:11 Monocytes # (Manual) 0.1 10^3/uL (0.0-1.0) 02/16/17 05:11 Nucleated RBCs 0.0 /100WBC 02/17/17 04:48 Differential Comment MANUAL DIFFERENTIAL 02/16/17 05:11 Platelet Estimate NORMAL (130-450,000) (NORMAL) 02/16/17 05:11 RBC Morph Micro Appear NORMAL APPEARANCE (NORMAL) 02/16/17 05:11 Bld Gas Analysis Time 0605 02/17/17 05:55 Sample Site RIGHT RADIAL 02/17/17 05:55 ABG pH 7.43 (7.35-7.45) 02/17/17 05:55 ABG pCO2 44 mmHg (34-45) 02/17/17 05:55 ABG pO2 94 mmHg (80-100) 02/17/17 05:55 ABG HCO3 28.8 mmol/L (22.0-26.0) H 02/17/17 05:55 ABG Total CO2 30.2 MMOL/L (21.0-29.0) H 02/17/17 05:55 ABG O2 Saturation 97 % (94-98) 02/17/17 05:55 ABG Oximetry Spot Check 94 % 02/17/17 05:55 ABG Base Excess 4.0 mmol/L (-2.0-3.0) H 02/17/17 05:55 Juan Test POSITIVE 02/17/17 05:55 Respiration Rate 12 b/min 02/16/17 06:07 O2 Delivery Device NASAL CANNULA 02/17/17 05:55 O2 Liters/Min 3.00 LPM 02/17/17 05:55 FiO2 40.00 02/16/17 06:07 EPAP 5 cmH2O 02/16/17 06:07 IPAP 10 cmH2O 02/16/17 06:07 Sodium 133 mmol/L (135-145) L 02/17/17 04:48 Potassium 4.6 mmol/L (3.5-5.0) 02/17/17 04:48 Chloride 100 mmol/L (101-111) L 02/17/17 04:48 Carbon Dioxide 28 mmol/L (21-32) 02/17/17 04:48 Anion Gap 5.0 (6-13) L 02/17/17 04:48 BUN 15 mg/dL (6-20) 02/17/17 04:48 Creatinine 0.6 mg/dL (0.6-1.2) 02/17/17 04:48 Estimated GFR (MDRD) 138 (>89) 02/17/17 04:48 Glucose 190 mg/dL (70-100) H 02/17/17 04:48 Lactic Acid 0.9 mmol/L (0.5-2.2) 02/15/17 08:27 Calcium 8.3 mg/dL (8.5-10.3) L 02/17/17 04:48 Phosphorus 2.6 mg/dL (2.5-4.6) 02/17/17 04:48 Magnesium 1.8 mg/dL (1.7-2.8) 02/17/17 04:48 Total Bilirubin 0.4 mg/dL (0.2-1.0) 02/17/17 04:48 AST 15 IU/L (10-42) 02/17/17 04:48 ALT 12 IU/L (10-60) 02/17/17 04:48 Alkaline Phosphatase 52 IU/L (42-121) 02/17/17 04:48 Troponin I < 0.04 ng/mL (<0.49) 02/15/17 08:27 B-Natriuretic Peptide 66 pg/mL (5-100) 02/15/17 08:27 Total Protein 5.9 g/dL (6.7-8.2) L 02/17/17 04:48 Albumin 3.0 g/dL (3.2-5.5) L 02/17/17 04:48 Globulin 2.9 g/dL (2.1-4.2) 02/17/17 04:48 Albumin/Globulin Ratio 1.0 (1.0-2.2) 02/17/17 04:48 Urine Color DARK YELLOW 02/15/17 11:06 Urine Clarity CLEAR (CLEAR) 02/15/17 11:06 Urine pH 6.0 PH (5.0-7.5) 02/15/17 11:06 Ur Specific [place] 1.020 (1.002-1.030) 02/15/17 11:06 Urine Protein NEGATIVE mg/dL (NEGATIVE) 02/15/17 11:06 Urine Glucose (UA) NEGATIVE mg/dL (NEGATIVE) 02/15/17 11:06 Urine Ketones 40 mg/dL (NEGATIVE) H 02/15/17 11:06 Urine Occult Blood NEGATIVE (NEGATIVE) 02/15/17 11:06 Urine Nitrite NEGATIVE (NEGATIVE) 02/15/17 11:06 Urine Bilirubin NEGATIVE (NEGATIVE) 02/15/17 11:06 Urine Urobilinogen 0.2 (NORMAL) E.U./dL (NORMAL) 02/15/17 11:06 Ur Leukocyte Esterase NEGATIVE (NEGATIVE) 02/15/17 11:06 Ur Microscopic Review NOT INDICATED 02/15/17 11:06 Urine Culture Comments NOT INDICATED 02/15/17 11:06
[2017-02-18] MEDS: NS W/20 MEQ KCL 1,000 ML IV SCH ×3 (00:09→10:04)
[2017-02-18] MEDS: oxyCODONE 5 MG TABLET PO PRN ×3 (03:31→11:57)
[2017-02-18 05:59] LABS: BASOPHILS % (AUTO) 0.1 %; HCT - HEMATOCRIT 33.3 % (42.0-52.0); LYMPHOCYTES # (AUTO) 0.2 10^3/uL (1.5-3.5); LYMPHOCYTES % (AUTO) 1.9 %; MEAN CORPUSCULAR HEMOGLOBIN 27.8 pg (27.0-31.0); MEAN CORPUSCULAR HGB CONC 33.2 g/dL (32.0-36.0); MEAN CORPUSCULAR VOLUME 83.7 fL (80.0-94.0); MEAN PLATELET VOLUME 7.3 fL (7.4-11.4); MONOCYTES # (AUTO) 0.7 10^3/uL (0.0-1.0); NEUTROPHILS # (AUTO) 9.2 10^3/uL (1.5-6.6); RED BLOOD COUNT 3.98 10^6/uL (4.70-6.10); RED CELL DISTRIBUTION WIDTH 17.8 % (12.0-15.0); UNCORRECTED WHITE BLOOD COUNT 10.1 x10^3/uL; WHITE BLOOD COUNT 10.1 x10^3/uL (4.8-10.8)
[2017-02-18 06:11] LABS: BILIRUBIN,TOTAL < 0.2 mg/dL (0.2-1.0); BUN - BLOOD UREA NITROGEN 14 mg/dL (6-20); CALCIUM 8.4 mg/dL (8.5-10.3); CARBON DIOXIDE - CO2 29 mmol/L (21-32); CHLORIDE 97 mmol/L (101-111); CREATININE 0.7 mg/dL (0.6-1.2); GFR - MDRD 116 (>89); GLUCOSE 254 mg/dL (70-100); MAGNESIUM 1.8 mg/dL (1.7-2.8); PHOSPHORUS 2.7 mg/dL (2.5-4.6); POTASSIUM 4.6 mmol/L (3.5-5.0); SODIUM 132 mmol/L (135-145); TOTAL PROTEIN 5.9 g/dL (6.7-8.2)
[2017-02-18] MEDS: PANTOPRAZOLE 40 MG VIAL IVP SCH (06:19)
[2017-02-18] MEDS: methylPREDNISolone SUCCINATE 40 MG/ML VIAL IVP SCH ×2 (06:19→13:19)
[2017-02-18] MEDS: GABAPENTIN 300 MG CAPSULE PO SCH ×2 (06:19→13:24)
[2017-02-18] MEDS: metroNIDAZOLE 250 MG TABLET PO SCH ×2 (06:19→13:20)
[2017-02-18] MEDS: SODIUM CHLORIDE FLUSH 0.9% 10 ML SYRINGE IVP SCH (06:19)
[2017-02-18] MEDS: hydroCHLOROthiazide 25 MG TABLET PO SCH (08:44)
[2017-02-18] MEDS: ENOXAPARIN 40 MG/0.4 ML SYRINGE SUBQ SCH (08:44)
[2017-02-18] MEDS: MEGESTROL 400 MG/10 ML UDC PO SCH (08:44)
[2017-02-18] MEDS: CHLORHEXIDINE GLUCONATE 15 ML UDC PO SCH (08:45)
--- NOTE | 2017-02-18 10:57 | Discharge Plan ---
Discharge Plan Disposition: Home, Self Care Condition: Fair Prescriptions: Cefuroxime Axetil [Ceftin] 250 mg PO Q12H #14 tablet Ipratropium/Albuterol [Duoneb] 3 ml INH TID #90 neb Prednisone 20 mg PO BID #36 tablet Diet: Regular Activity Restrictions: Activity as Tolerated Shower Restrictions: No Driving Restrictions: No Weight Bearing: Full Weight Instruction Topics: Travel W Oxygen, Oxygen Home Dc Additional Instructions or Follow Up instructions: Dear Alphonse, Take your medicine as directed. Use your Oxygen. Pace yourself, treat yourself to a nap if needed. Make an appt to be seen in the next week. Thank you for the opportunity to care for you. Dr. Martin No Smoking: If you smoke, Please STOP! Call for help. Follow-up with: Magen Zhao MD [Primary Care Provider] - 1 Week
[2017-02-18] MEDS: IPRATROPIUM/ALBUTEROL 3 ML NEB INH SCH ×2 (12:16→13:02)
[2017-02-18 12:59] VITALS: BP 128/86
--- NOTE | 2017-02-20 10:25 | DISCHARGE SUMMARY ---
DATE OF ADMISSION: 02/15/2017 DATE OF DISCHARGE: 02/18/2017 PRIMARY CARE PROVIDER: Magen Zhao MD ONCOLOGIST: Dada Martin MD; oncologist, [facility]. ADMISSION DIAGNOSES 1. Acute respiratory failure. 2. Chronic obstructive pulmonary disease with exacerbation. 3. Diffuse lung cancer, multiple lobes. 4. Hypokalemia. 5. Previous tobacco abuse. DISCHARGE DIAGNOSES 1. Acute respiratory failure, improved. 2. Chronic obstructive pulmonary disease with exacerbation, improved. 3. Pneumonia. 4. Diffuse lung cancer, multiple lobes. 5. Hypokalemia, resolved. 6. Previous tobacco abuse. SPECIAL PROCEDURES: None. CONSULTATIONS: None. HOSPITAL COURSE AND MANAGEMENT: Initial presentation, hospital emergency evaluation, and hospitalist plan are well described in the History and Physical; see copy of same. SUMMARY: This is a 57-year-old male, diagnosed over a year ago with inoperable terminal cancer of the lung. He has been getting palliative chemotherapy since then. He has developed increasing shortness of breath over the last 2 days or longer and was in extremis over the last number of hours. The patie nt was found to be in acute respiratory failure, was placed on BiPAP, and found to have increased adriana g cancer. There is no clear pneumonia, though there is a nodular pattern in the lungs. The patient wa s placed on steroids, beta-agonists, oxygen, and BiPAP support. He had breathing improvement over the next day. He and his were engaged in an end-of-life needs discussion twice, and though he recognizes that he is going to of this cancer, he is not willing to even relinquish the option of having to be in tubated and placed on a ventilator if deemed necessary, or having resuscitation. The patient over the next 24 hours had some improvement and was able to be on the BiPAP intermittentl y. The following day he had reduced oxygen requirement down to 3 liters but was able to only go a few feet without becoming severely dyspneic and requiring more oxygen. He was found on a repeat chest x- ray on 02/16/2017 to have patchy nodular areas in the left chest, less apparent on yesterday's exam, suggesting areas of pneumonia. The patient was to be started on antibiotics, namely Rocephin, was not started until discharge. The patient's omission was uncovered at the time of discharge. The patient at the day of discharge had improvement in his oxygenation and at rest was at times able to maintain oxygen at 92% to 95%, but with minimal activity dropped to 82%, so the recommendation was to have oxygen at rest, especially in light of the pneumonia and underlying cancer. This can be tape red and discontinued as improvement warrants. PHYSICAL EXAMINATION VITAL SIGNS: 36.7, 115, 128/86, 22, 93 on 2 liters. GENERAL: A well-developed, well-nourished male. HEENT: Eyes EOM, within normal limits, PERRL, anicteric. Mouth and throat, moist mucous membranes; no other pathology noted in mouth or pharynx. NECK: No lymphadenopathy, no thyromegaly, no bruits or JVD. CHEST: Chest wall nontender. Symmetric. HEART: Sinus tachycardia. No murmur, rubs, clicks heard. LUNGS: Clear, fair air movement; still rales and rhonchi in the right upper lung field where the canc er is and left lower lung. ABDOMEN: Soft, nontender. Normal bowel sounds. No hepatosplenomegaly. RECTAL/GENITAL: Exams not done. EXTREMITIES: No edema, 1+ pulses. No cyanosis. VASCULAR: Patient's neuro cognition intact. Cranial nerves intact. Motor intact. LABORATORY DATA White count is down to 10.1 from a maximum of 13.5; 11 and 33 hemoglobin and hematocrit; platelets ar e 429. Sodium 132, potassium 4.6, chloride 97, CO2 of 29, BUN 14, creatinine 0.6. The patient's glucose is u p to 254, previous to steroids 115. The patient's calcium is 8.4, normal liver enzymes, and the patie nt's albumin is 3.0. The patient is discharged home. ALLERGIES: PENICILLIN. HOME MEDICATION 1. Megestrol 800 mg a day. 2. Flagyl 500 mg t.i.d. 3. Albuterol 1 puff q.4 hours p.r.n. 4. Oxycodone 10 mg q.4 hours p.r.n. 5. Hydrochlorothiazide 25 mg daily. 6. Gabapentin 600 mg t.i.d. 7. Temazepam 15 mg daily at bedtime. 8. Ibuprofen 800 mg every 6 hours as needed. 9. Prednisone taper starting with 20 mg b.i.d. for 5 days, then 30 mg in the a.m. for 5 days, 20 mg in the a.m. for 5 days, and then 10 mg once a day. The patient is to be tapered more rapidly if indicated in his followup visits with his PCP. 10. Patient was also given a nebulizer of Duoneb 3 mL 3 times a day to be tapered as he improves. 11. Ceftin 250 mg q.12 hours for 7 days. 12. He is also finishing a course of Flagyl as indicated above. The patient is to pace himself and take naps if needed. FOLLOWUP ISSUES 1. The cancer. 2. Pneumonia. 3. COPD and ventilation with the oxygen, as well as the taper of the cortisone. 4. He had no diarrhea while he was in the hospital and should be able to finish the Flagyl as per pre vious recommendation. Time spent in discharge with patient education, family conference, collaboration with case management , nursing 45 minutes. The patient was examined on the day of discharge. ADDENDUM: The patient had an oxygen desaturation trial supervised by the respiratory therapist, Rasta Sharif. T he patient's O2 saturation at rest was 90%, heart rate 110; with ambulation dropped to 86 with a hear t rate of 116. On 1 liter at rest was 89%, heart rate 117. On 2 liters, 92% and heart rate 114. On 2 liters with ambulation, 92% and heart rate is 124. Therefore, the patient will be on 2 liters continu ous, both with rest and with ambulation and other activities. [facility] JOB #: [id number] EXT JOB #:[id number]
== END 2017-02-18 13:40 | disposition home or self-care (01) | DRG 189 ==
LOC: EDUNIT# → ED 07:54 → ICU 10:24
PROVIDERS: ADMIT Internal Medicine; ATTEND Internal Medicine
DX: J96.00 Acute respiratory failure, unspecified whether with hypoxia or hypercapnia (principal); J18.9 Pneumonia, unspecified organism; J44.1 Chronic obstructive pulmonary disease with (acute) exacerbation; C34.82 Malignant neoplasm of overlapping sites of left bronchus and lung; C34.11 Malignant neoplasm of upper lobe, right bronchus or lung; A04.7 Enterocolitis due to Clostridium difficile; E87.6 Hypokalemia; M54.5 Low back pain; T38.0X5A Adverse effect of glucocorticoids and synthetic analogues, initial encounter; R73.9 Hyperglycemia, unspecified; Z87.891 Personal history of nicotine dependence; Z99.81 Dependence on supplemental oxygen; Z79.891 Long term (current) use of opiate analgesic; Z79.51 Long term (current) use of inhaled steroids; Z79.899 Other long term (current) drug therapy; Z91.81 History of falling; Z79.52 Long term (current) use of systemic steroids
CPT/HCPCS: 36415; 36600; 71010; 80048; 80053; 81001; 81003; 82803; 83605; 83735; 83880; 84100; 84484; 85025; 87040; 87070; 87077; 87086; 87150; 87205; 94640; 94660; 94761; 96374; 99284

== ENCOUNTER 2017-03-16 15:47 | Outpatient (CLI) | payer MEDICAID | END 2017-03-16 15:48 | disposition critical access hospital (66) | LOC: EMS 15:47 | PROVIDERS: ATTEND Surgery | DX: R06.00 Dyspnea, unspecified (principal) | CPT/HCPCS: A0425; A0427 ==

== ENCOUNTER 2017-03-16 16:01 | Inpatient (IN) | payer MEDICAID ==
[2017-03-16] MEDS ORDERED: ALBUTEROL NEB 2.5 MG/3 ML INH ONE (16:12)
--- NOTE | 2017-03-16 16:25 | ED Physician Documentation ---
PD HPI DYSPNEA - Stated complaint Stated Complaint: SOA - Chief complaint Chief Complaint: Resp - History obtained from History obtained from: Patient, EMS - History of Present Illness Timing - onset: How many weeks ago (1) Timing - onset during: Rest, Light activity Timing - duration: Weeks (1 week worsening dyspnea, since being done with steroids from prior hospitalization. Worse the past 1-2 days especially.) Timing - details: Gradual onset, Still present Inciting event(s): Out of meds (for diuretic and oxycodone pain med. Still has nebulizer meds and MDI. No chronic steroids.) Improved by: Inhaler/neb, Rest, Sitting up Worsened by: Exertion, Coughing. No: Laying flat Associated symptoms: Cough (productive white/marquez sputum), Wheezing. No: Fever , Hemoptysis, Chest pain / discomfort, Bilateral edema Similar symptoms before: Diagnosis (COPD, bronchitis, pneumonia. No history of CHF.) Recently seen: Emergency Dept, Admitted (about 3 weeks ago with similar and was treated with nebs, steroids, abx. He says he got better and was well for about 1 1/2 weeks, then started with symptoms about a week ago.) Review of Systems Constitutional: reports: Chills, Myalgias. denies: Fever Nose: reports: Congestion. denies: Rhinorrhea / runny nose Throat: denies: Sore throat Cardiac: reports: Chest pain / pressure. denies: Palpitations Respiratory: reports: Dyspnea, Cough, Wheezing GI: reports: Nausea. denies: Abdominal Pain, Vomiting, Diarrhea : denies: Dysuria, Frequency Skin: denies: Rash, Lesions Neurologic: reports: Generalized weakness. denies: Focal weakness, Numbness, Near syncope Endocrine: denies: Weight loss, Easy bruising / bleeding Immunocompromised: reports: Immunocompromised PD PAST MEDICAL HISTORY - Past Medical History Cardiovascular: Other Respiratory: Other (lung cancer with local lung mets. ) Neuro: None Endocrine/Autoimmune: None GI: None : None HEENT: None Psych: None Musculoskeletal: None Derm: None - Past Surgical History Past Surgical History: Yes - Present Medications Home Medications: Ambulatory Orders Medication Instructions Recorded Confirmed Ibuprofen 800 mg PO Q6HR 09/18/15 02/15/17 Albuterol Sulfate [Proair Hfa 1 puffs INH Q4H PRN 02/15/17 02/15/17 Inhaler] Gabapentin 600 mg PO TID 02/15/17 02/15/17 Hydrochlorothiazide 25 mg PO DAILY 02/15/17 02/15/17 Megestrol Acetate 800 mg PO DAILY 02/15/17 02/15/17 Temazepam 15 mg PO DAILY PM PRN 02/15/17 02/15/17 metroNIDAZOLE [Flagyl] 500 mg PO TID 02/15/17 02/15/17 oxyCODONE [Roxicodone] 10 mg PO Q4H PRN 02/15/17 02/15/17 Cefuroxime Axetil [Ceftin] 250 mg PO Q12H #14 tablet 02/18/17 Ipratropium/Albuterol [Duoneb] 3 ml INH TID #90 neb 02/18/17 Prednisone 20 mg PO BID #36 tablet 02/18/17 - Allergies Allergies/Adverse Reactions: Allergies Allergy/AdvReac Type Severity Reaction Status Date / Time Penicillins Allergy Respiratory Verified 09/18/15 18:33 - Social History Does the pt smoke?: Yes Smoking Status: Former smoker Does the pt drink ETOH?: Yes Does the pt have substance abuse?: No - Family History Family history: reports: Non contributory - Immunizations Immunizations are current?: No Immunizations: TDAP >10years/unknown PD ED PE NORMAL - Vitals Vital signs reviewed: Yes - General General: Alert and oriented X 3, Well developed/nourished, Other (talking in partial sentences. Fast breathing rate with some accessory muscle use. ) - HEENT HEENT: Ears normal, Pharynx benign. No: Moist mucous membranes - Neck Neck: Supple, no meningeal sign, No adenopathy - Cardiac Cardiac: No: RRR (tachycardic without murmur. ) - Respiratory Respiratory: No: Clear bilaterally (diffuse wheezing and tight tidal volume. No coarse sounds though. Some accessory muscle use. ) - Abdomen Abdomen: Soft, Non tender - Male Male : Deferred - Rectal Rectal: Deferred - Back Back: No CVA TTP - Derm Derm: Normal color, Warm and dry - Extremities Extremities: Normal ROM s pain, No edema, No calf tenderness / cord - Neuro Neuro: Alert and oriented X 3, No motor deficit, Normal speech Results - Vitals Vitals: Vital Signs - 24 hr 09/03/16/17 03/16/17 16:11 16:36 17:03 Temperature 36.0 C L Heart Rate 127 H 127 H 104 H Respiratory 38 H 20 24 Rate Blood Pressure 138/120 H 122/108 H O2 Saturation 91 L 100 03/16/17 03/16/17 03/16/17 18:36 18:50 19:27 Temperature Heart Rate 73 128 H 128 H Respiratory 24 24 24 Rate Blood Pressure 117/77 106/56 L O2 Saturation 97 91 L 03/16/17 20:40 Temperature Heart Rate 127 H Respiratory 22 Rate Blood Pressure O2 Saturation Oxygen O2 Source Oxymask Oxygen Flow Rate 4 - Labs Labs: Laboratory Tests 03/16/17 03/16/17 03/16/17 16:54 16:54 16:54 WBC 8.5 RBC 4.32 L Hgb 12.1 L Hct 37.1 L MCV 85.7 MCH 28.0 MCHC 32.7 RDW 19.1 H Plt Count 417 MPV 7.1 L Neut # 7.2 H Lymph # 0.3 L [place] # 0.9 Eos # 0.1 Baso # 0.1 Absolute Nucleated RBC 0.00 Nucleated RBC % 0.0 Sodium 134 L Potassium 4.3 Chloride 95 L Carbon Dioxide 26 Anion Gap 13.0 BUN 22 H Creatinine 0.7 Estimated GFR (MDRD) 116 Glucose 107 H Calcium 8.7 Magnesium 1.8 Total Bilirubin 0.9 AST 15 ALT 17 Alkaline Phosphatase 68 B-Natriuretic Peptide 259 H Total Protein 6.6 L Albumin 3.2 Globulin 3.4 Albumin/Globulin Ratio 0.9 L Lipase 15 L - Rads (name of study) chest Radiology: Prelim report reviewed, EMP read contemporaneously (interstitial changes. Similar to recent CXR. ) PD MEDICAL DECISION MAKING - ED course Complexity details: considered differential (He was given sequential nebulizer treatments as well as IV steroids and some diazepam as there seem to be some anxiety component as well. He definitely is very wheezy. He was given some pain medicine as he had missed his usual home pain medications and was having pain with breathing. He is also given magnesium IV to attempt as a smooth muscle relaxant. He did have some improvement in breathing so he had minimal accessory muscle use and was able to talk in sentences. We maintained repetitive nebulizer treatments at regular intervals. Given the underlying lung condition and COPD, I was concerned for infection and gave Levaquin IV as he had to have a recent hospitalization 3 weeks ago. There was prolonged stay in the ER awaiting the hospitalist service to call back and come and see the patient. He remained stable here in the ER though will likely need to be in the ICU for watching of his respiratory status. I confirmed with him and his that he remains a full code and would want intubation should his breathing get that bad.), d/w patient Departure - Departure Disposition: 66 [facility] DC/Xfer Clinical Impression: Acute exacerbation of COPD with asthma Dyspnea Qualifiers: Dyspnea type: shortness of breath Qualified Code(s): R06.02 - Shortness of breath Lung cancer Qualifiers: Laterality: unspecified laterality Lung location: overlapping sites Qualified Code(s): C34.80 - Malignant neoplasm of overlapping sites of unspecified bronchus and lung Condition: Stable Record reviewed to determine appropriate education?: Yes
[2017-03-16] MEDS ORDERED: DEXAMETHASONE 10 MG/ML VIAL IVP STA (16:39)
[2017-03-16] MEDS ORDERED: FUROSEMIDE 20 MG/2 ML VIAL IVP STA (16:39)
[2017-03-16] MEDS ORDERED: oxyCODONE 5 MG TABLET PO STA (16:39)
[2017-03-16] MEDS ORDERED: HYDROmorphone 1 MG/ML CARPUJECT IVP STA ×2 (16:39→21:19)
[2017-03-16] MEDS ORDERED: MAGNESIUM SULFATE 2 GRAM 2 GM/50 ML BAG IV ONE ×2 (16:41→16:55)
[2017-03-16] MEDS ORDERED: FUROSEMIDE 20 MG/2 ML VIAL IVP ONE (16:54)
[2017-03-16] MEDS ORDERED: oxyCODONE 5 MG TABLET ONE (16:54)
[2017-03-16] MEDS ORDERED: HYDROmorphone 1 MG/ML CARPUJECT ONE ×2 (16:54→21:27)
[2017-03-16] MEDS ORDERED: DEXAMETHASONE 10 MG/ML VIAL ONE (16:54)
[2017-03-16] MEDS ORDERED: SODIUM CHLORIDE FLUSH 0.9% 10 ML SYRINGE IVP ONE ×2 (16:55→19:17)
[2017-03-16] MEDS: IPRATROPIUM/ALBUTEROL 3 ML NEB INH STA ×2 (17:03→17:43)
[2017-03-16 17:04] LABS: BASOPHILS # (AUTO) 0.1 10^3/uL (0.0-0.1); BASOPHILS % (AUTO) 0.6 %; EOSINOPHILS # (AUTO) 0.1 10^3/uL (0.0-0.7); EOSINOPHILS % (AUTO) 1.6 %; HCT - HEMATOCRIT 37.1 % (42.0-52.0); HGB - HEMOGLOBIN 12.1 g/dL (14.0-18.0); LYMPHOCYTES # (AUTO) 0.3 10^3/uL (1.5-3.5); LYMPHOCYTES % (AUTO) 2.9 %; MEAN CORPUSCULAR HGB CONC 32.7 g/dL (32.0-36.0); MEAN CORPUSCULAR VOLUME 85.7 fL (80.0-94.0); MEAN PLATELET VOLUME 7.1 fL (7.4-11.4); MONOCYTES # (AUTO) 0.9 10^3/uL (0.0-1.0); MONOCYTES % (AUTO) 10.7 %; NEUTROPHILS # (AUTO) 7.2 10^3/uL (1.5-6.6); NEUTROPHILS % (AUTO) 84.2 %; RED BLOOD COUNT 4.32 10^6/uL (4.70-6.10); RED CELL DISTRIBUTION WIDTH 19.1 % (12.0-15.0); UNCORRECTED WHITE BLOOD COUNT 8.5 x10^3/uL; WHITE BLOOD COUNT 8.5 x10^3/uL (4.8-10.8)
[2017-03-16] MEDS ORDERED: IPRATROPIUM/ALBUTEROL 3 ML NEB INH ONE ×2 (17:07→17:46)
[2017-03-16 17:17] LABS: ALBUMIN/GLOBULIN RATIO 0.9 (1.0-2.2); BILIRUBIN,TOTAL 0.9 mg/dL (0.2-1.0); CALCIUM 8.7 mg/dL (8.5-10.3); CREATININE 0.7 mg/dL (0.6-1.2); MAGNESIUM 1.8 mg/dL (1.7-2.8); POTASSIUM 4.3 mmol/L (3.5-5.0); TOTAL PROTEIN 6.6 g/dL (6.7-8.2)
--- NOTE | 2017-03-16 17:33 | XRAY Preliminary Report ---
Exam: XR Chest 1 View IMPRESSION: New airspace opacification in the left lung. Differential diagnosis including pulmonary e caron, pneumonia, aspiration or pulmonary hemorrhage. [id number]
--- NOTE | 2017-03-16 17:36 | XRAY Report ---
EXAM: CHEST RADIOGRAPHY EXAM DATE: 03/16/2017 05:20 PM. CLINICAL HISTORY: Dyspnea, COPD exac. COMPARISON: 02/16/2017. TECHNIQUE: 1 view. FINDINGS: Lungs/Pleura: There are bilateral diffuse moderate interstitial and ill-defined opacities which are i ncreased in the left mid and lower lung. There is scarring and increased opacification within the upp er right lung with architectural distortion, without significant interval change. Elevated right diap hragm without change. Mediastinum: Mediastinal contour unchanged. Other: None. IMPRESSION: New airspace opacification in the left lung. Differential diagnosis including pulmonary e caron, pneumonia, aspiration or pulmonary hemorrhage. [facility] Referring Provider Line: [phone] SITE ID: [id number]
[2017-03-16] MEDS ORDERED: ALBUTEROL NEB 2.5 MG/3 ML INH STA ×2 (18:32→20:26)
[2017-03-16] MEDS ORDERED: diazePAM INJ 5 MG/ML SYRINGE IVP STA (18:47)
[2017-03-16] MEDS ORDERED: diazePAM INJ 5 MG/ML SYRINGE ONE (19:16)
[2017-03-16] MEDS ORDERED: levoFLOXacin 750 MG/150 ML 750 MG/150 ML BAG IV ONE (20:26)
[2017-03-16] MEDS ORDERED: PROCHLORPERAZINE 10 MG/2 ML VIAL IVP PRN (22:03)
[2017-03-16] MEDS ORDERED: ZOLPIDEM 5 MG TABLET PO PRN (22:03)
[2017-03-16] MEDS ORDERED: ONDANSETRON 4 MG/2 ML VIAL IVP PRN (22:03)
[2017-03-16] MEDS ORDERED: CEFEPIME 2 GM in SODIUM CHLORIDE 0.9% MINIBAG 100 ML IV STA (22:09)
[2017-03-16] MEDS: IPRATROPIUM/ALBUTEROL 3 ML NEB INH SCH (23:30)
[2017-03-17 00:07] LABS: ABG ANALYSIS TIME 2325; ABG BASE EXCESS -2.2 mmol/L (-2.0-3.0); ABG HCO3 22.9 mmol/L (22.0-26.0); ABG OXYGEN SATURATION 96 % (94-98); ABG PCO2 41 mmHg (34-45); ABG PH 7.37 (7.35-7.45); ABG PO2 82 mmHg (80-100); ABG TCO2 24.1 MMOL/L (21.0-29.0); ALLEN TEST POSITIVE
[2017-03-17 00:08] LABS: ABG EXPIRATORY POS AIRWAY P 5 cmH2O; ABG INSPIRATORY POS AIRWAY P 12 cmH2O; ABG MODE OF VENTILATION SYNCHRONOUS/TIMES; ABG O2 DEVICE BiPAP; ABG RESPIRATORY RATE 16 b/min; ABG SATURATION PULSE OXIMETRY% 97 %; ABG SITE OF DRAW LEFT RADIAL
[2017-03-17] MEDS ORDERED: IOPAMIDOL-300 100 ML VIAL ONE (00:16)
[2017-03-17] MEDS ORDERED: LORazepam 2 MG/ML SYRINGE IVP STA (00:25)
[2017-03-17] MEDS: SODIUM CHLORIDE FLUSH 0.9% 10 ML SYRINGE IVP PRN ×7 (00:41→21:38)
[2017-03-17] MEDS: HYDROmorphone 1 MG/ML CARPUJECT IVP PRN ×5 (01:23→22:53)
[2017-03-17] MEDS ORDERED: IOPAMIDOL-300 100 ML VIAL IVP ONE (01:27)
[2017-03-17] MEDS: methylPREDNISolone SUCCINATE 40 MG/ML VIAL IVP SCH ×4 (01:31→17:52)
[2017-03-17] MEDS: oxyCODONE 5 MG TABLET PO PRN ×4 (02:34→19:32)
--- NOTE | 2017-03-17 02:44 | HISTORY & PHYSICAL EXAMINATION ---
Chief Complaint - Chief Complaint Chief Complaint: Shortness of breath History of Present Illness - Admitted From Admitted From:: Emergency department - History Obtained From Records Reviewed: Yes History obtained from: Patient and his Exam Limitations: None - History of Present Illness HPI Comment/Other: Patient is an unfortunate 57-year-old gentleman who was diagnosed with lung cancer in 2016 and was found to have metastatic disease in both lungs with history of heavy tobacco abuse who has since quit the patient was admitted recently 3 weeks ago for acute respiratory failure secondary to COPD exacerbation requiring BiPAP he presents to emergency department today with increasing shortness of breath. The patient states that symptoms started about a week ago and he has been having increasing shortness of breath with wheezing ever since. The patient states that after discharge from the hospital on 2016 the patient completed his antibiotics and steroids he was feeling much better than about a week ago he began having difficulty breathing. He states that he was taking his inhalers at home but they were not doing him any good. He states that today his shortness of breath became so severe he could not walk to his car and finally decided he needed to come into the emergency department. The patient states that with walking 10 feet he becomes severely short of breath. The patient is on home oxygen 2 L and had to bump up to 3 L prior to coming into the emergency department. The patient states that he has been having significant wheezing the last day. Patient denies any fevers or chills, he denies any upper respiratory symptoms. Patient states his last chemotherapy treatment was over a month ago. Patient denies having had any sick contacts. Patient denies any headaches, blurred vision, runny nose, sore throat, chest pain, abdominal pain, nausea, vomiting, diarrhea, constipation, urinary urgency , urinary frequency, dysuria, joint pain, muscle aches, neck stiffness, back pain, patient does admit to right clavicular pain which is been there since he was diagnosed with the cancer, he admits to weight loss and decreased appetite. The patient denies any focal neurologic deficits. On presentation to the emergency department the patient was in severe respiratory distress using accessory muscles of breathing and tachypneic with increasing oxygen requirement. The patient received multiple back to back treatments, steroids and antibiotics in the emergency department patient had no significant improvement continue to have respiratory distress. The patient was placed on BiPAP and admitted to the intensive care unit. The patient's chest x- ray did show a left sided opacity concerning for pneumonia. Patient was admitted for acute respiratory failure with hypoxia. History - Past Medical History Cardiovascular: reports: None Respiratory: reports: COPD, Other (Lung cancer with metastasis) Neuro: reports: None Endocrine/Autoimmune: reports: None GI: reports: None : reports: None HEENT: reports: None Psych: reports: None Musculoskeletal: reports: None Derm: reports: None MRSA Hx?: No Other Past Medical History: Lung CA - Family & Social History Family History: Sister: Cancer (Breast cancer) Family History Comment/Other: Negative for heart disease, diabetes, stroke Living arrangement: At home Living Situation: With spouse/s.o. Social History Notes: Patient was born in [place], [place] was in the [employer] has lived here for some time. 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 The patient previously smoked 2 packs a day for over 35 years quit a year and a half ago when he was diagnosed with lung cancer. Patient drinks alcohol 1-2 drinks a day and more on weekends. He denies any illicit drug use - Substance History Use: Uses substance without health or social issues: Alcohol Abuse: Recurrent use of substance despite neg consequences: NONE Dependence: Experiences withdrawal or developed tolerances: NONE - POLST Patient has POLST: No POLST Status: Full Code Meds/Allgy - Home Medications Home Medications: Ambulatory Orders Medication Instructions Recorded Confirmed Ibuprofen 800 mg PO Q6HR 09/18/15 02/15/17 Albuterol Sulfate [Proair Hfa 1 puffs INH Q4H PRN 02/15/17 02/15/17 Inhaler] Gabapentin 600 mg PO TID 02/15/17 02/15/17 Hydrochlorothiazide 25 mg PO DAILY 02/15/17 02/15/17 Megestrol Acetate 800 mg PO DAILY 02/15/17 02/15/17 Temazepam 15 mg PO DAILY PM PRN 02/15/17 02/15/17 metroNIDAZOLE [Flagyl] 500 mg PO TID 02/15/17 02/15/17 oxyCODONE [Roxicodone] 10 mg PO Q4H PRN 02/15/17 02/15/17 Cefuroxime Axetil [Ceftin] 250 mg PO Q12H #14 tablet 02/18/17 Ipratropium/Albuterol [Duoneb] 3 ml INH TID #90 neb 02/18/17 Prednisone 20 mg PO BID #36 tablet 02/18/17 - Allergies Allergies/Adverse Reactions: Allergies Allergy/AdvReac Type Severity Reaction Status Date / Time Penicillins Allergy Respiratory Verified 09/18/15 18:33 Review of Systems - Other Findings Other Findings: A comprehensive review of systems was performed the pertinent positives and negatives are stated above in the HPI and the remainder of the review of systems is negative. Exam - Vital Signs Vital Signs: Vital Signs x48h Temp Pulse Pulse Resp BP Pulse Ox 03/17/17 02:00 120 H 20 110/78 96 03/17/17 01:00 121 H 125 H 22 106/72 95 03/17/17 00:00 123 H 24 108/78 96 03/16/17 23:30 126 H 22 03/16/17 23:10 125 H 03/16/17 23:00 36.6 C 126 H 158 H 44 H 115/86 H 84 L - Physical Exam General Appearance: positive: Alert, Severe distress (Tachypneic, using accessory muscles of breathing, severe respiratory distress), Anxious, Other ( Cachectic) Eyes Bilateral: positive: Normal inspection, PERRL, EOMI, No lid inflammation, Conjunctivae nml, No scleral icterus ENT: positive: ENT inspection nml, Pharynx nml, Dry mucous membranes. negative : Purulent nasal drainage, Pharyngeal erythema, Oral lesions Neck: positive: Nml inspection, Thyroid nml, No JVD, Trachea midline. negative : Thyromegaly, Lymphadenopathy (R), Lymphadenopathy (L), Stiff neck, Carotid bruit, Tracheal deviation Respiratory: positive: Chest non-tender, Wheezes (Diffuse bilateral expiratory) , Rales (Bilateral bases), Rhonchi (Bilateral), Other (Severe respiratory distress With use of accessory muscles of breathing) Cardiovascular: positive: No murmur, No gallop, Tachycardia Peripheral Pulses: positive: 2+ Abdomen: positive: Non-tender, No organomegaly, Nml bowel sounds, No distention. negative: Guarding, Rebound, Hepatomegaly Back: positive: Nml inspection. negative: CVA tenderness (R), CVA tenderness (L ) Skin: positive: No rash, Warm. negative: Cyanosis, Diaphoresis, Pallor Extremities: positive: Full ROM, Nml appearance, Pedal edema (Bilateral 2+ pitting edema) Neurologic/Psychiatric: positive: Oriented x3, CN's nml (2-12), Motor nml, Sensation nml, Depressed mood/affect (Very anxious) Conclusion/Plan - Problem List (1) Acute respiratory failure with hypoxia Conclusion/Plan: Patient presented with 1 week of shortness of air and increasing hypoxia. On presentation patient was in severe respiratory distress, tachypneic, using accessory muscles of breathing and very anxious. Patient's on 2 L of home oxygen and was requiring 12 L oxygen mask prior to admission. Patient admitted to the ICU on BiPAP. Etiology of acute respiratory failure appears to be secondary to a healthcare associated pneumonia with COPD exacerbation and pulmonary edema in the setting of underlying metastatic lung cancer. Given patient's history of lung cancer there is also concern for possible pulmonary embolism we will get a CT angiogram of the lung to look for PE. Plan: Start patient on treatment for healthcare associated pneumonia with cefepime and Levaquin Placed on BiPAP Give IV Lasix twice daily Duo nebs and steroids CT angiogram lungs to rule out PE Monitor closely patient would want intubation if needed (2) HCAP (healthcare-associated pneumonia) Conclusion/Plan: Patient presented with acute respiratory failure with hypoxia and placed on BiPAP admitted to the ICU. Patient's chest x-ray shows a left lung opacity concerning for possible pneumonia. Patient was admitted to the hospital earlier this month for more than 3 days and therefore is a healthcare associated pneumonia. Given history of cancer patient could have postobstructive pneumonia. Plan: Is on BiPAP Start IV cefepime and Levaquin (3) COPD exacerbation Conclusion/Plan: Patient presented with acute respiratory failure with hypoxia requiring BiPAP. Patient has history of lung cancer and COPD due to years of smoking. Patient appears to be in COPD exacerbation with diffuse wheezing and respiratory distress. Likely COPD exacerbation secondary to pneumonia. Plan: Duo nebs around the clock and as needed IV steroids 3 times daily BiPAP (4) Pulmonary edema Conclusion/Plan: Patient appears to have crackles on examination concerning for pulmonary edema. The patient also has increased lower extremity swelling. Patient does not have an echocardiogram in her system. He presented with acute respiratory failure with hypoxia requiring BiPAP. Plan: Give IV Lasix twice daily Echocardiogram in the morning Qualifiers: Chronicity: acute Qualified Code(s): J81.0 - Acute pulmonary edema (5) Lung cancer Conclusion/Plan: Patient has lung cancer and bilateral lungs. He is undergoing palliative chemotherapy. He gets chemotherapy every 3 weeks but has not had a chemotherapy session in over a month due to recent acute illness. The patient' s cancer is metastasized in both lungs. Is a possibility the patient could have a postobstructive pneumonia. Plan: Treat patient's acute respiratory failure Continue follow-up with oncology as an outpatient Qualifiers: Laterality: unspecified laterality Lung location: overlapping sites Qualified Code(s): C34.80 - Malignant neoplasm of overlapping sites of unspecified bronchus and lung (6) Chronic pain Conclusion/Plan: Patient has chronic pain since being diagnosed with cancer. The pain is located in his right clavicle or area. Patient is on oxycodone at home for the pain. Pain is uncontrolled today Plan: Patient will be continued on oxycodone and given IV Dilaudid as needed while he is hospitalized. Qualifiers: Chronic pain type: due to neoplasm Qualified Code(s): G89.3 - Neoplasm related pain (acute) (chronic) (7) Prophylactic use of low molecular weight heparin for venous thromboembolism (VTE) Conclusion/Plan: Placed on Lovenox for DVT prophylaxis awaiting CT angiogram lung to rule out PE - Lab Results Lab results reviewed: Yes Fish Bones: 03/16/17 16:54 03/16/17 16:54 Other Lab Results: Laboratory Results WBC 8.5 x10^3/uL (4.8-10.8) 03/16/17 16:54 RBC 4.32 10^6/uL (4.70-6.10) L 03/16/17 16:54 Hgb 12.1 g/dL (14.0-18.0) L 03/16/17 16:54 Hct 37.1 % (42.0-52.0) L 03/16/17 16:54 MCV 85.7 fL (80.0-94.0) 03/16/17 16:54 MCH 28.0 pg (27.0-31.0) 03/16/17 16:54 MCHC 32.7 g/dL (32.0-36.0) 03/16/17 16:54 RDW 19.1 % (12.0-15.0) H 03/16/17 16:54 Plt Count 417 10^3/uL (130-450) 03/16/17 16:54 MPV 7.1 fL (7.4-11.4) L 03/16/17 16:54 Neut # 7.2 10^3/uL (1.5-6.6) H 03/16/17 16:54 Lymph # 0.3 10^3/uL (1.5-3.5) L 03/16/17 16:54 [place] # 0.9 10^3/uL (0.0-1.0) 03/16/17 16:54 Eos # 0.1 10^3/uL (0.0-0.7) 03/16/17 16:54 Baso # 0.1 10^3/uL (0.0-0.1) 03/16/17 16:54 Absolute Nucleated RBC 0.00 x10^3/uL 03/16/17 16:54 Nucleated RBC % 0.0 /100WBC 03/16/17 16:54 Bld Gas Analysis Time 232403/16/17 23:25 Sample Site LEFT RADIAL 03/16/17 23:25 ABG pH 7.37 (7.35-7.45) 03/16/17 23:25 ABG pCO2 41 mmHg (34-45) 03/16/17 23:25 ABG pO2 82 mmHg (80-100) 03/16/17 23:25 ABG HCO3 22.9 mmol/L (22.0-26.0) 03/16/17 23:25 ABG Total CO2 24.1 MMOL/L (21.0-29.0) 03/16/17 23:25 ABG O2 Saturation 96 % (94-98) 03/16/17 23:25 ABG Oximetry Spot Check 97 % 03/16/17 23:25 ABG Base Excess -2.2 mmol/L (-2.0-3.0) L 03/16/17 23:25 Juan Test POSITIVE 03/16/17 23:25 Respiration Rate 16 b/min 03/16/17 23:25 O2 Delivery Device BiPAP 03/16/17 23:25 Vent Mode SYNCHRONOUS/TIMES 03/16/17 23:25 FiO2 45.00 03/16/17 23:25 EPAP 5 cmH2O 03/16/17 23:25 IPAP 12 cmH2O 03/16/17 23:25 Sodium 134 mmol/L (135-145) L 03/16/17 16:54 Potassium 4.3 mmol/L (3.5-5.0) 03/16/17 16:54 Chloride 95 mmol/L (101-111) L 03/16/17 16:54 Carbon Dioxide 26 mmol/L (21-32) 03/16/17 16:54 Anion Gap 13.0 (6-13) 03/16/17 16:54 BUN 22 mg/dL (6-20) H 03/16/17 16:54 Creatinine 0.7 mg/dL (0.6-1.2) 03/16/17 16:54 Estimated GFR (MDRD) 116 (>89) 03/16/17 16:54 Glucose 107 mg/dL (70-100) H 03/16/17 16:54 Calcium 8.7 mg/dL (8.5-10.3) 03/16/17 16:54 Magnesium 1.8 mg/dL (1.7-2.8) 03/16/17 16:54 Total Bilirubin 0.9 mg/dL (0.2-1.0) 03/16/17 16:54 AST 15 IU/L (10-42) 03/16/17 16:54 ALT 17 IU/L (10-60) 03/16/17 16:54 Alkaline Phosphatase 68 IU/L (42-121) 03/16/17 16:54 B-Natriuretic Peptide 259 pg/mL (5-100) H 03/16/17 16:54 Total Protein 6.6 g/dL (6.7-8.2) L 03/16/17 16:54 Albumin 3.2 g/dL (3.2-5.5) 03/16/17 16:54 Globulin 3.4 g/dL (2.1-4.2) 03/16/17 16:54 Albumin/Globulin Ratio 0.9 (1.0-2.2) L 03/16/17 16:54 Lipase 15 U/L (22-51) L 03/16/17 16:54 - Diagnostic Imaging Results Diagnostic Imaging Results: positive: Final report reviewed Diagnostic Imaging Results Comments: Chest x-ray Impression: New airspace opacification in the left lung. Differential diagnosis including pulmonary edema, pneumonia, aspiration or pulmonary hemorrhage. Issues/Core Measures - Anticipated LOS Anticipated Stay Length: 2 or more midnights - DVT/VTE - Prophylaxis VTE/DVT Prophylaxis med ordered at admit?: Yes
--- NOTE | 2017-03-17 02:58 | CT Preliminary Report ---
Exam: CT Chest Angio (PE) IMPRESSION: 1. No definite pulmonary embolism. Smaller subsegmental branches are difficult to assess on this stud y. 2. There is abnormal soft tissue at the right hilum with pleural and parenchymal consolidation within the right upper lobe with volume loss. This likely corresponds to the primary malignancy. 3. Extensive interstitial and airspace abnormality. This may represent a combination of edema, infect ion, and/or metastasis. 4. Status post placement of an SVC stent. Collateral pathway results in opacification of the vein of [place] with dense contrast material within segment IVb. 5. There is an apparent enhancing mass measuring 2.5 cm within the anterior aspect of the left mid ki dney. Comparison and correlation with any outside institution studies would be helpful. Otherwise, th is could be further assessed with renal MRI without and with contrast on a nonemergent outpatient bas is. 6. Infiltrative mediastinal lymphadenopathy, along the right paratracheal as well as precarinal regio n. 7. Lesion noted within the L1 vertebral body with mild compression deformity. [facility] SITE ID: [id number]
--- NOTE | 2017-03-17 03:08 | CT Report ---
EXAM: CT ANGIOGRAM CHEST EXAM DATE: 03/17/2017 01:28 AM. CLINICAL HISTORY: Hypoxia, shortness of breath on exertion. COMPARISON: None. TECHNIQUE: Routine helical imaging was performed through the chest in the pulmonary arterial phase. I V Contrast: 80 mL Isovue-300. Reconstructions: Coronal 3-D MIP reconstructions.Sagittal and coronal. In accordance with CT protocol optimization, one or more of the following dose reduction techniques w ere utilized for this exam: automated exposure control, adjustment of mA and/or KV based on patient s ize, or use of iterative reconstructive technique. FINDINGS: Pulmonary Arteries: Adequate opacification of the pulmonary artery. No main, lobar, or segmental embo lism. Smaller subsegmental vessels are difficult to assess on this study. Lungs and Pleura: Irregular consolidation within the right upper lobe with volume loss is noted. Ther e is additional multifocal interstitial as well as airspace disease throughout the lungs. Air trappin g noted within the right middle lobe. Infiltrative soft tissue is noted at the right pulmonary hilum with resultant narrowing of the right upper lobe bronchus. There is a small left-sided and trace righ t-sided pleural effusion. Central Airways: Visualized central airways are without suspicious filling defects. Chest Wall: No significant abnormality. Thyroid: No significant abnormality. Mediastinum: SVC stent noted within the mediastinum. Infiltrative mediastinal lymphadenopathy exiting up to the posterior aspect of the pulmonary outflow tract (image 51 series 3). Heart: Normal in size. No significant pericardial effusion. Aorta: Normal caliber. Upper Abdomen: Opacification of the vein of [place] is noted, with hyperdense contrast material fillin g the inferior aspect of the left hepatic lobe, from collateral pathway. Reflux into the IVC is noted , below the liver parenchyma. There is an apparent enhancing mass within the anterior aspect of the l eft mid kidney measuring 2.5 cm (image 173 series 3). Smaller low-density focus posteriorly within th e left mid kidney measuring 1.9 cm cyst is difficult to characterize (image 173 series 3). Increased number of scattered small periaortic retroperitoneal lymph nodes are present. These are nonspecific. Bones: There is a lesion within the L1 vertebral body with mild compression deformity. IMPRESSION: 1. No definite pulmonary embolism. Smaller subsegmental branches are difficult to assess on this stud y. 2. There is abnormal soft tissue at the right hilum with pleural and parenchymal consolidation within the right upper lobe with volume loss. This likely corresponds to the primary malignancy. 3. Extensive interstitial and airspace abnormality. This may represent a combination of edema, infect ion, and/or metastasis. 4. Status post placement of an SVC stent. Collateral pathway results in opacification of the vein of [place] with dense contrast material within segment IVb. 5. There is an apparent enhancing mass measuring 2.5 cm within the anterior aspect of the left mid ki dney. Comparison and correlation with any outside institution studies would be helpful. Otherwise, th is could be further assessed with renal MRI without and with contrast on a nonemergent outpatient bas is. 6. Infiltrative mediastinal lymphadenopathy, along the right paratracheal as well as precarinal regio n. 7. Lesion noted within the L1 vertebral body with mild compression deformity. [facility] Referring Provider Line: [phone] SITE ID: [id number]
[2017-03-17 04:11] LABS: BILIRUBIN,URINE NEGATIVE (NEGATIVE)
[2017-03-17 04:12] LABS: UA CHARGE (STRIP ONLY) YES; UR CULTURE IF IND NOT INDICATED
[2017-03-17 05:59] LABS: BASOPHILS % (AUTO) 0.1 %; HCT - HEMATOCRIT 34.8 % (42.0-52.0); HGB - HEMOGLOBIN 11.5 g/dL (14.0-18.0); LYMPHOCYTES % (AUTO) 1.4 %; MEAN CORPUSCULAR HEMOGLOBIN 28.5 pg (27.0-31.0); MEAN CORPUSCULAR HGB CONC 33.1 g/dL (32.0-36.0); MEAN CORPUSCULAR VOLUME 85.9 fL (80.0-94.0); MEAN PLATELET VOLUME 7.5 fL (7.4-11.4); NEUTROPHILS % (AUTO) 95.5 %; RED BLOOD COUNT 4.05 10^6/uL (4.70-6.10); RED CELL DISTRIBUTION WIDTH 18.5 % (12.0-15.0); UNCORRECTED WHITE BLOOD COUNT 6.1 x10^3/uL; WHITE BLOOD COUNT 6.1 x10^3/uL (4.8-10.8)
[2017-03-17 06:03] LABS: INR 1.3 (0.8-1.2); PT - PROTHROMBIN TIME 15.2 secs (9.9-12.6)
[2017-03-17 06:14] LABS: ALBUMIN/GLOBULIN RATIO 0.9 (1.0-2.2); BILIRUBIN,TOTAL 0.7 mg/dL (0.2-1.0); CALCIUM 8.5 mg/dL (8.5-10.3); CREATININE 0.7 mg/dL (0.6-1.2); MAGNESIUM 2.1 mg/dL (1.7-2.8); POTASSIUM 4.6 mmol/L (3.5-5.0); TOTAL PROTEIN 6.3 g/dL (6.7-8.2)
[2017-03-17] MEDS: SODIUM CHLORIDE FLUSH 0.9% 10 ML SYRINGE IVP SCH ×3 (06:29→12:19)
[2017-03-17 07:14] LABS: BAND NEUTROPHILS % (MANUAL) 2 %; LYMPHOCYTES % (MANUAL) 5 %; NEUTROPHILS % (MANUAL) 90 %; NP AUTO DIFFERENTIAL? YES; NP MAN DIFFERENTIAL? NO; PLATELET ESTIMATE, MANUAL NORMAL (130-450,000) (NORMAL); TOTAL CELLS COUNTED 100
[2017-03-17] MEDS: IPRATROPIUM/ALBUTEROL 3 ML NEB INH SCH ×4 (07:25→19:00)
[2017-03-17] MEDS: LORazepam 2 MG/ML SYRINGE IVP PRN ×5 (08:54→22:32)
[2017-03-17] MEDS: SACCHAROMYCES BOULARDII 250 MG CAPSULE PO SCH ×2 (08:56→17:44)
[2017-03-17] MEDS: CEFEPIME 2 GM in SODIUM CHLORIDE 0.9% MINIBAG 100 ML IV SCH ×2 (10:53→21:02)
[2017-03-17] MEDS: ENOXAPARIN 40 MG/0.4 ML SYRINGE SUBQ SCH (10:54)
[2017-03-17] MEDS: FAMOTIDINE 20 MG TABLET PO SCH (10:54)
[2017-03-17] MEDS: levoFLOXacin 750 MG/150 ML 750 MG/150 ML BAG IV SCH (22:34)
[2017-03-17] MEDS: ACETAMINOPHEN 325 MG TABLET PO PRN (22:51)
[2017-03-18] MEDS: SODIUM CHLORIDE FLUSH 0.9% 10 ML SYRINGE IVP PRN ×6 (00:28→20:55)
[2017-03-18] MEDS: methylPREDNISolone SUCCINATE 40 MG/ML VIAL IVP SCH ×4 (00:28→18:07)
[2017-03-18] MEDS: oxyCODONE 5 MG TABLET PO PRN ×4 (00:29→20:56)
[2017-03-18] MEDS: IPRATROPIUM/ALBUTEROL 3 ML NEB INH PRN ×4 (03:55→14:50)
[2017-03-18 05:12] LABS: BASOPHILS % (AUTO) 0.1 %; HCT - HEMATOCRIT 33.1 % (42.0-52.0); HGB - HEMOGLOBIN 10.8 g/dL (14.0-18.0); LYMPHOCYTES % (AUTO) 1.5 %; MEAN CORPUSCULAR HEMOGLOBIN 28.1 pg (27.0-31.0); MEAN CORPUSCULAR HGB CONC 32.7 g/dL (32.0-36.0); MEAN PLATELET VOLUME 7.4 fL (7.4-11.4); MONOCYTES % (AUTO) 5.9 %; NEUTROPHILS % (AUTO) 92.5 %; RED BLOOD COUNT 3.85 10^6/uL (4.70-6.10); RED CELL DISTRIBUTION WIDTH 18.6 % (12.0-15.0); UNCORRECTED WHITE BLOOD COUNT 7.7 x10^3/uL; WHITE BLOOD COUNT 7.7 x10^3/uL (4.8-10.8)
[2017-03-18 05:20] LABS: ALBUMIN/GLOBULIN RATIO 0.8 (1.0-2.2); BILIRUBIN,TOTAL 0.3 mg/dL (0.2-1.0); CALCIUM 8.4 mg/dL (8.5-10.3); CREATININE 0.6 mg/dL (0.6-1.2); MAGNESIUM 2.2 mg/dL (1.7-2.8); POTASSIUM 4.6 mmol/L (3.5-5.0); TOTAL PROTEIN 6.2 g/dL (6.7-8.2)
[2017-03-18] MEDS: SODIUM CHLORIDE FLUSH 0.9% 10 ML SYRINGE IVP SCH ×3 (06:01→16:02)
[2017-03-18 06:04] LABS: BAND NEUTROPHILS % (MANUAL) 2 %; LYMPHOCYTES % (MANUAL) 1 %; NEUTROPHILS % (MANUAL) 93 %; PLATELET ESTIMATE, MANUAL NORMAL (130-450,000) (NORMAL); TOTAL CELLS COUNTED 100
[2017-03-18 06:05] LABS: NP AUTO DIFFERENTIAL? YES; NP MAN DIFFERENTIAL? NO
[2017-03-18] MEDS: ACETAMINOPHEN 325 MG TABLET PO PRN ×2 (06:14→14:28)
[2017-03-18] MEDS: SACCHAROMYCES BOULARDII 250 MG CAPSULE PO SCH ×2 (09:04→17:59)
[2017-03-18] MEDS: FAMOTIDINE 20 MG TABLET PO SCH (10:36)
[2017-03-18] MEDS: CEFEPIME 2 GM in SODIUM CHLORIDE 0.9% MINIBAG 100 ML IV SCH ×3 (10:36→20:56)
[2017-03-18] MEDS: ENOXAPARIN 40 MG/0.4 ML SYRINGE SUBQ SCH (10:36)
[2017-03-18] MEDS: MORPHINE 2 MG/ML SYRINGE IVP PRN ×2 (10:38→16:02)
[2017-03-18] MEDS: LORazepam 2 MG/ML SYRINGE IVP PRN ×4 (10:38→20:55)
[2017-03-18] MEDS: GABAPENTIN 300 MG CAPSULE PO SCH ×3 (10:52→20:55)
--- NOTE | 2017-03-18 17:47 | PROVIDER PROGRESS NOTE ---
Assessment/Plan - Problem List (1) COPD exacerbation Assessment/Plan: No wheezing on exam and better air movement Continue present meds and O2 Will move out of ICU to Med-Srg bed today and assess with OOB to chair then up with PT (2) Lung cancer Qualifiers: Laterality: unspecified laterality Lung location: overlapping sites Qualified Code(s): C34.80 - Malignant neoplasm of overlapping sites of unspecified bronchus and lung Assessment/Plan: with mets. Continue present management (3) Chronic pain Qualifiers: Chronic pain type: due to neoplasm Qualified Code(s): G89.3 - Neoplasm related pain (acute) (chronic) Assessment/Plan: Continue present meds for pain control - Current Meds Current Meds: Current Medications Generic Name Dose Route Start Last Admin Trade Name Freq PRN Reason Stop Dose Admin Acetaminophen 650 mg 03/16/17 22:03 03/18/17 14:28 Tylenol PO 650 mg Q4HR PRN Administration Pain 1 to 4 Albuterol/Ipratropium 3 ml 03/16/17 22:09 03/18/17 14:50 Duoneb INH 3 ml RTQID PRN Administration Wheezing Enoxaparin Sodium 40 mg 03/17/17 09:00 03/18/17 10:36 Lovenox SUBQ 40 mg DAILY DANIELA Administration Famotidine 20 mg 03/17/17 09:00 03/18/17 10:36 Pepcid PO 20 mg DAILY DANIELA Administration Gabapentin 600 mg 03/18/17 11:00 03/18/17 14:29 Neurontin PO 600 mg TID DANIELA Administration Cefepime HCl 2 gm/ Sodium 100 mls @ 200 mls/hr 03/17/17 09:00 03/18/17 11:56 Chloride IV Infused BID DANIELA Infusion Levofloxacin 750 mg in 150 mls @ 100 mls/hr 03/17/17 23:00 03/18/17 00:36 Levaquin 750 Mg/150 Ml IV Infused Q24H DANIELA Infusion Lorazepam 1 mg 03/17/17 17:28 03/18/17 14:33 Ativan Inj IVP 1 mg Q2HR PRN Administration Anxiety Methylprednisolone 40 mg 03/17/17 00:00 03/18/17 12:07 Solu-Medrol (40mg Vial) IVP 40 mg Q6HR DANIELA Administration Morphine Sulfate 2 mg 03/18/17 09:16 03/18/17 16:02 Morphine IVP 2 mg Q2H PRN Administration PAIN Oxycodone HCl 5 mg 03/16/17 22:03 03/18/17 14:29 Roxicodone PO 5 mg Q4HR PRN Administration Pain 5 to 7 Oxycodone HCl 10 mg 03/16/17 22:03 03/18/17 06:14 Roxicodone PO 10 mg Q4HR PRN Administration Pain 8 to 10 Saccharomyces Boulardii 250 mg 03/17/17 08:00 03/18/17 09:04 Florastor PO 250 mg BIDWM DANIELA Administration Sodium Chloride 10 ml 03/17/17 06:00 03/18/17 16:02 Normal Saline Flush 0.9% IVP 10 ml Q8HR DANIELA Administration Sodium Chloride 10 ml 03/16/17 22:03 03/18/17 14:28 Normal Saline Flush 0.9% IVP 10 ml PRN PRN Administration NEEDED PER PROVIDER ORDERS - Lab Result Fish Bone Diagrams: 03/18/17 04:53 03/18/17 04:53 - Additional Planning My Orders: My Active Orders 03/17/17 17:28 LORazepam INJ [Ativan Inj] 1 mg IVP Q2HR PRN 03/18/17 08:59 Activity Orders [RC] QSHIFT 03/18/17 09:16 Morphine Inj [Morphine] 2 mg IVP Q2H PRN 03/18/17 11:00 Gabapentin [Neurontin] 600 mg PO TID Subjective - Subjective Patient Reports: Feeling Better Nursing Reports: Other (O2 sat was above 90% off BIPAP) Objective Vital Signs: Vital Signs - 24 hr 03/17/17 03/17/17 03/17/17 18:00 19:00 20:00 Temperature 36.7 C Heart Rate 120 H Heart Rate [ 116 H 118 H Monitoring electrodes] Respiratory 19 20 24 Rate Blood Pressure 118/80 120/82 H [Right Brachial artery] O2 Saturation 96 96 03/17/17 03/17/17 03/17/17 21:00 22:00 23:00 Temperature Heart Rate Heart Rate [ 116 H 118 H 114 H Monitoring electrodes] Respiratory 18 26 H 16 Rate Blood Pressure 102/72 122/84 H 118/84 H [Right Brachial artery] O2 Saturation 96 94 93 03/18/17 03/18/1717 00:00 01:00 02:00 Temperature Heart Rate Heart Rate [ 110 H 110 H 108 H Monitoring electrodes] Respiratory 18 18 20 Rate Blood Pressure 114/93 H 110/87 H 109/82 H [Right Brachial artery] O2 Saturation 96 96 95 03/18/17 03/18/17 03/18/17 03:00 03:55 04:00 Temperature 36.6 C Heart Rate 108 H Heart Rate [ 107 H 108 H Monitoring electrodes] Respiratory 14 18 18 Rate Blood Pressure 112/78 115/84 H [Right Brachial artery] O2 Saturation 94 95 03/18/17 03/18/17 03/18/17 05:00 06:00 06:58 Temperature Heart Rate Heart Rate [ 110 H 117 H 108 H Monitoring electrodes] Respiratory 16 96 H 14 Rate Blood Pressure 132/89 H 137/95 H 122/82 H [Right Brachial artery] O2 Saturation 95 8 L 94 03/18/17 03/18/17 03/18/17 07:20 08:00 09:00 Temperature 36.7 C 36.6 C Heart Rate 112 H Heart Rate [ 111 H 110 H Monitoring electrodes] Respiratory 17 22 17 Rate Blood Pressure 126/91 H 125/93 H [Right Brachial artery] O2 Saturation 93 95 03/18/17 03/18/17 03/18/17 10:00 10:45 11:00 Temperature 36.3 C L Heart Rate 112 H Heart Rate [ 108 H 110 H Monitoring electrodes] Respiratory 18 18 16 Rate Blood Pressure 122/87 H 127/94 H [Right Brachial artery] O2 Saturation 97 94 03/18/17 03/18/17 03/18/17 11:58 13:00 14:14 Temperature 36.7 C 36.7 C Heart Rate Heart Rate [ 116 H 114 H 124 H Monitoring electrodes] Respiratory 27 H 23 22 Rate Blood Pressure 120/90 H 111/83 H 136/83 H [Right Brachial artery] O2 Saturation 93 96 93 03/18/17 03/18/17 14:50 15:45 Temperature 36.7 C Heart Rate 110 H Heart Rate [ 88 Monitoring electrodes] Respiratory 20 19 Rate Blood Pressure 124/77 [Right Brachial artery] O2 Saturation 94 Oxygen O2 Source Oxymizer I&O (Last 24 Hrs): Intake and Output Totals x24h 03/16/17 03/17/17 03/18/17 23:59 23:59 23:59 Intake Total 2310 1600 Output Total 100 1055 1100 Balance -100 1255 500 General: Alert HEENT: Mucous membr. moist/pink Neck: Supple Neuro: Alert Cardiovascular: Regular rate Respiratory: Other (No wheezwes and better air movement in all lung [place]) Abdomen: Soft Extremities: No edema - Results Results: Laboratory Results WBC 7.7 x10^3/uL (4.8-10.8) 03/18/17 04:53 RBC 3.85 10^6/uL (4.70-6.10) L 03/18/17 04:53 Hgb 10.8 g/dL (14.0-18.0) L 03/18/17 04:53 Hct 33.1 % (42.0-52.0) L 03/18/17 04:53 MCV 86.0 fL (80.0-94.0) 03/18/17 04:53 MCH 28.1 pg (27.0-31.0) 03/18/17 04:53 MCHC 32.7 g/dL (32.0-36.0) 03/18/17 04:53 RDW 18.6 % (12.0-15.0) H 03/18/17 04:53 Plt Count 360 10^3/uL (130-450) 03/18/17 04:53 MPV 7.4 fL (7.4-11.4) 03/18/17 04:53 Neut # Not Reportable 03/18/17 04:53 Lymph # Not Reportable 03/18/17 04:53 [place] # Not Reportable 03/18/17 04:53 Eos # Not Reportable 03/18/17 04:53 Baso # Not Reportable 03/18/17 04:53 Absolute Nucleated RBC Not Reportable 03/18/17 04:53 Total Counted 100 03/18/17 04:53 Band Neuts % (Manual) 2 % (0-10) 03/18/17 04:53 Nucleated RBC % Not Reportable 03/18/17 04:53 Neutrophils # (Manual) 7.3 10^3/uL (1.5-6.6) H 03/18/17 04:53 Lymphocytes # (Manual) 0.1 10^3/uL (1.5-3.5) L 03/18/17 04:53 Monocytes # (Manual) 0.3 10^3/uL (0.0-1.0) 03/18/17 04:53 Differential Comment MANUAL DIFFERENTIAL 03/18/17 04:53 Platelet Estimate NORMAL (130-450,000) (NORMAL) 03/18/17 04:53 RBC Morph Micro Appear NORMAL APPEARANCE (NORMAL) 03/18/17 04:53 PT 15.2 secs (9.9-12.6) H 03/17/17 04:55 INR 1.3 (0.8-1.2) H 03/17/17 04:55 Bld Gas Analysis Time 23203/16/17 23:25 Sample Site LEFT RADIAL 03/16/17 23:25 ABG pH 7.37 (7.35-7.45) 03/16/17 23:25 ABG pCO2 41 mmHg (34-45) 03/16/17 23:25 ABG pO2 82 mmHg (80-100) 03/16/17 23:25 ABG HCO3 22.9 mmol/L (22.0-26.0) 03/16/17 23:25 ABG Total CO2 24.1 MMOL/L (21.0-29.0) 03/16/17 23:25 ABG O2 Saturation 96 % (94-98) 03/16/17 23:25 ABG Oximetry Spot Check 97 % 03/16/17 23:25 ABG Base Excess -2.2 mmol/L (-2.0-3.0) L 03/16/17 23:25 Juan Test POSITIVE 03/16/17 23:25 Respiration Rate 16 b/min 03/16/17 23:25 O2 Delivery Device BiPAP 03/16/17 23:25 Vent Mode SYNCHRONOUS/TIMES 03/16/17 23:25 FiO2 45.00 03/16/17 23:25 EPAP 5 cmH2O 03/16/17 23:25 IPAP 12 cmH2O 03/16/17 23:25 Sodium 132 mmol/L (135-145) L 03/18/17 04:53 Potassium 4.6 mmol/L (3.5-5.0) 03/18/17 04:53 Chloride 97 mmol/L (101-111) L 03/18/17 04:53 Carbon Dioxide 26 mmol/L (21-32) 03/18/17 04:53 Anion Gap 9.0 (6-13) 03/18/17 04:53 BUN 24 mg/dL (6-20) H 03/18/17 04:53 Creatinine 0.6 mg/dL (0.6-1.2) 03/18/17 04:53 Estimated GFR (MDRD) 138 (>89) 03/18/17 04:53 Glucose 141 mg/dL (70-100) H 03/18/17 04:53 Calcium 8.4 mg/dL (8.5-10.3) L 03/18/17 04:53 Magnesium 2.2 mg/dL (1.7-2.8) 03/18/17 04:53 Total Bilirubin 0.3 mg/dL (0.2-1.0) 03/18/17 04:53 AST 12 IU/L (10-42) 03/18/17 04:53 ALT 15 IU/L (10-60) 03/18/17 04:53 Alkaline Phosphatase 54 IU/L (42-121) 03/18/17 04:53 B-Natriuretic Peptide 259 pg/mL (5-100) H 03/16/17 16:54 Total Protein 6.2 g/dL (6.7-8.2) L 03/18/17 04:53 Albumin 2.8 g/dL (3.2-5.5) L 03/18/17 04:53 Globulin 3.4 g/dL (2.1-4.2) 03/18/17 04:53 Albumin/Globulin Ratio 0.8 (1.0-2.2) L 03/18/17 04:53 Lipase 15 U/L (22-51) L 03/16/17 16:54 Urine Color YELLOW 03/17/17 02:32 Urine Clarity CLEAR (CLEAR) 03/17/17 02:32 Urine pH 5.0 PH (5.0-7.5) 03/17/17 02:32 Ur Specific [place] 1.025 (1.002-1.030) 03/17/17 02:32 Urine Protein NEGATIVE mg/dL (NEGATIVE) 03/17/17 02:32 Urine Glucose (UA) NEGATIVE mg/dL (NEGATIVE) 03/17/17 02:32 Urine Ketones 15 mg/dL (NEGATIVE) H 03/17/17 02:32 Urine Occult Blood NEGATIVE (NEGATIVE) 03/17/17 02:32 Urine Nitrite NEGATIVE (NEGATIVE) 03/17/17 02:32 Urine Bilirubin NEGATIVE (NEGATIVE) 03/17/17 02:32 Urine Urobilinogen 0.2 (NORMAL) E.U./dL (NORMAL) 03/17/17 02:32 Ur Leukocyte Esterase NEGATIVE (NEGATIVE) 03/17/17 02:32 Ur Microscopic Review NOT INDICATED 03/17/17 02:32 Urine Culture Comments NOT INDICATED 03/17/17 02:32
[2017-03-18] MEDS: levoFLOXacin 750 MG/150 ML 750 MG/150 ML BAG IV SCH (22:34)
[2017-03-19] MEDS: SODIUM CHLORIDE FLUSH 0.9% 10 ML SYRINGE IVP PRN ×5 (00:28→20:25)
[2017-03-19] MEDS: methylPREDNISolone SUCCINATE 40 MG/ML VIAL IVP SCH ×4 (00:28→17:24)
[2017-03-19] MEDS: oxyCODONE 5 MG TABLET PO PRN ×5 (00:33→18:22)
[2017-03-19] MEDS: SODIUM CHLORIDE FLUSH 0.9% 10 ML SYRINGE IVP SCH ×3 (05:14→18:22)
[2017-03-19] MEDS: GABAPENTIN 300 MG CAPSULE PO SCH ×3 (05:14→20:25)
[2017-03-19 06:10] LABS: HCT - HEMATOCRIT 33.2 % (42.0-52.0); LYMPHOCYTES # (AUTO) 0.1 10^3/uL (1.5-3.5); LYMPHOCYTES % (AUTO) 1.6 %; MEAN CORPUSCULAR HEMOGLOBIN 28.3 pg (27.0-31.0); MEAN CORPUSCULAR VOLUME 85.7 fL (80.0-94.0); MEAN PLATELET VOLUME 7.6 fL (7.4-11.4); MONOCYTES # (AUTO) 0.4 10^3/uL (0.0-1.0); MONOCYTES % (AUTO) 5.9 %; NEUTROPHILS # (AUTO) 6.9 10^3/uL (1.5-6.6); NEUTROPHILS % (AUTO) 92.5 %; RED BLOOD COUNT 3.88 10^6/uL (4.70-6.10); RED CELL DISTRIBUTION WIDTH 18.6 % (12.0-15.0); UNCORRECTED WHITE BLOOD COUNT 7.5 x10^3/uL; WHITE BLOOD COUNT 7.5 x10^3/uL (4.8-10.8)
[2017-03-19 06:24] LABS: ALBUMIN/GLOBULIN RATIO 0.9 (1.0-2.2); BILIRUBIN,TOTAL 0.5 mg/dL (0.2-1.0); CALCIUM 8.4 mg/dL (8.5-10.3); CREATININE 0.6 mg/dL (0.6-1.2); POTASSIUM 4.2 mmol/L (3.5-5.0); TOTAL PROTEIN 6.2 g/dL (6.7-8.2)
[2017-03-19] MEDS: SACCHAROMYCES BOULARDII 250 MG CAPSULE PO SCH ×2 (09:11→17:23)
[2017-03-19] MEDS: FAMOTIDINE 20 MG TABLET PO SCH (09:11)
[2017-03-19] MEDS: ENOXAPARIN 40 MG/0.4 ML SYRINGE SUBQ SCH (09:12)
[2017-03-19] MEDS: CEFEPIME 2 GM in SODIUM CHLORIDE 0.9% MINIBAG 100 ML IV SCH ×2 (09:13→20:25)
[2017-03-19] MEDS: IPRATROPIUM/ALBUTEROL 3 ML NEB INH PRN (16:01)
--- NOTE | 2017-03-19 17:21 | PROVIDER PROGRESS NOTE ---
Assessment/Plan - Problem List (1) COPD exacerbation Assessment/Plan: Will assess oximetry: RT did o2 sat at rest 83% and with walk on 1L is 87% Continue present management. Not yet stable for [facility] (2) Lung cancer Qualifiers: Laterality: unspecified laterality Lung location: overlapping sites Qualified Code(s): C34.80 - Malignant neoplasm of overlapping sites of unspecified bronchus and lung Assessment/Plan: No c/o of worsening pain. Pt is not yet associated with [facility] (3) Chronic pain Qualifiers: Chronic pain type: due to neoplasm Qualified Code(s): G89.3 - Neoplasm related pain (acute) (chronic) - Current Meds Current Meds: Current Medications Generic Name Dose Route Start Last Admin Trade Name Freq PRN Reason Stop Dose Admin Acetaminophen 650 mg 03/16/17 22:03 03/18/17 14:28 Tylenol PO 650 mg Q4HR PRN Administration Pain 1 to 4 Albuterol/Ipratropium 3 ml 03/16/17 22:09 03/19/17 16:01 Duoneb INH 3 ml RTQID PRN Administration Wheezing Enoxaparin Sodium 40 mg 03/17/17 09:00 03/19/17 09:12 Lovenox SUBQ 40 mg DAILY DANIELA Administration Famotidine 20 mg 03/17/17 09:00 03/19/17 09:11 Pepcid PO 20 mg DAILY DANIELA Administration Gabapentin 600 mg 03/18/17 11:00 03/19/17 13:51 Neurontin PO 600 mg TID DANIELA Administration Cefepime HCl 2 gm/ Sodium 100 mls @ 200 mls/hr 03/17/17 09:00 03/19/17 10:49 Chloride IV Infused BID DANIELA Infusion Levofloxacin 750 mg in 150 mls @ 100 mls/hr 03/17/17 23:00 03/19/17 00:28 Levaquin 750 Mg/150 Ml IV Infused Q24H DANIELA Infusion Lorazepam 1 mg 03/17/17 17:28 03/18/17 20:55 Ativan Inj IVP 1 mg Q2HR PRN Administration Anxiety Methylprednisolone 40 mg 03/17/17 00:00 03/19/17 12:14 Solu-Medrol (40mg Vial) IVP 40 mg Q6HR DANIELA Administration Morphine Sulfate 2 mg 03/18/17 09:16 03/18/17 16:02 Morphine IVP 2 mg Q2H PRN Administration PAIN Oxycodone HCl 5 mg 03/16/17 22:03 03/19/17 13:51 Roxicodone PO 5 mg Q4HR PRN Administration Pain 5 to 7 Oxycodone HCl 10 mg 03/16/17 22:03 03/19/17 05:15 Roxicodone PO 10 mg Q4HR PRN Administration Pain 8 to 10 Saccharomyces Boulardii 250 mg 03/17/17 08:00 03/19/17 09:11 Florastor PO 250 mg BIDWM DANIELA Administration Sodium Chloride 10 ml 03/17/17 06:00 03/19/17 13:51 Normal Saline Flush 0.9% IVP 10 ml Q8HR DANIELA Administration Sodium Chloride 10 ml 03/16/17 22:03 03/19/17 12:14 Normal Saline Flush 0.9% IVP 20 ml PRN PRN Administration NEEDED PER PROVIDER ORDERS - Lab Result Fish Bone Diagrams: 03/19/17 05:13 03/19/17 05:13 - Additional Planning My Orders: My Active Orders 03/19/17 Evaluate and Treat PT [PT] Routine 03/19/17 07:46 O2 Sat [RC] ONCE Subjective - Subjective Patient Reports: Feeling Better, Resting Comfortably, Other (His speech is with less SOB Pt reports he is on O2 24/7 at 2.5 L n.c. at home. Here he is on 30% FIO2) Nursing Reports: No Complaints Objective Vital Signs: Vital Signs - 24 hr 03/18/17 03/18/17 03/19/17 18:36 20:15 01:00 Temperature 36.8 C 36.6 C Heart Rate 105 H Heart Rate [ Brachial] Heart Rate [ 112 H 102 H Monitoring electrodes] Respiratory 20 20 18 Rate Blood Pressure 118/78 120/83 H [Right Brachial artery] O2 Saturation 96 97 03/19/17 03/19/17 03/19/17 04:05 07:46 08:17 Temperature 36.8 C 36.6 C Heart Rate Heart Rate [ 104 H Brachial] Heart Rate [ 113 H Monitoring electrodes] Respiratory 18 16 Rate Blood Pressure 124/75 127/80 [Right Brachial artery] O2 Saturation 93 96 96 03/19/17 03/19/17 03/19/17 08:28 13:00 15:56 Temperature 36.6 C 36.6 C Heart Rate 96 Heart Rate [ 110 H Brachial] Heart Rate [ 98 Monitoring electrodes] Respiratory 18 18 18 Rate Blood Pressure 122/81 H 112/77 [Right Brachial artery] O2 Saturation 96 97 03/19/17 16:06 Temperature Heart Rate 102 H Heart Rate [ Brachial] Heart Rate [ Monitoring electrodes] Respiratory 18 Rate Blood Pressure [Right Brachial artery] O2 Saturation Oxygen O2 Source Oxymizer I&O (Last 24 Hrs): Intake and Output Totals x24h 03/17/17 03/18/17 03/19/17 23:59 23:59 23:59 Intake Total 2310 1900 1246 Output Total 1055 1100 1200 Balance 1255 800 46 General: Alert HEENT: Mucous membr. moist/pink Neck: Supple Neuro: Alert Cardiovascular: Regular rate Respiratory: Breath sounds nml, Other (Poor air movement but no rales or wheezes ) Abdomen: Soft Extremities: No edema - Results Results: Laboratory Results WBC 7.5 x10^3/uL (4.8-10.8) 03/19/17 05:13 RBC 3.88 10^6/uL (4.70-6.10) L 03/19/17 05:13 Hgb 11.0 g/dL (14.0-18.0) L 03/19/17 05:13 Hct 33.2 % (42.0-52.0) L 03/19/17 05:13 MCV 85.7 fL (80.0-94.0) 03/19/17 05:13 MCH 28.3 pg (27.0-31.0) 03/19/17 05:13 MCHC 33.0 g/dL (32.0-36.0) 03/19/17 05:13 RDW 18.6 % (12.0-15.0) H 03/19/17 05:13 Plt Count 379 10^3/uL (130-450) 03/19/17 05:13 MPV 7.6 fL (7.4-11.4) 03/19/17 05:13 Neut # 6.9 10^3/uL (1.5-6.6) H 03/19/17 05:13 Lymph # 0.1 10^3/uL (1.5-3.5) L 03/19/17 05:13 [place] # 0.4 10^3/uL (0.0-1.0) 03/19/17 05:13 Eos # 0.0 10^3/uL (0.0-0.7) 03/19/17 05:13 Baso # 0.0 10^3/uL (0.0-0.1) 03/19/17 05:13 Absolute Nucleated RBC 0.00 x10^3/uL 03/19/17 05:13 Total Counted 100 03/18/17 04:53 Band Neuts % (Manual) 2 % (0-10) 03/18/17 04:53 Nucleated RBC % 0.0 /100WBC 03/19/17 05:13 Neutrophils # (Manual) 7.3 10^3/uL (1.5-6.6) H 03/18/17 04:53 Lymphocytes # (Manual) 0.1 10^3/uL (1.5-3.5) L 03/18/17 04:53 Monocytes # (Manual) 0.3 10^3/uL (0.0-1.0) 03/18/17 04:53 Differential Comment MANUAL DIFFERENTIAL 03/18/17 04:53 Platelet Estimate NORMAL (130-450,000) (NORMAL) 03/18/17 04:53 RBC Morph Micro Appear NORMAL APPEARANCE (NORMAL) 03/18/17 04:53 PT 15.2 secs (9.9-12.6) H 03/17/17 04:55 INR 1.3 (0.8-1.2) H 03/17/17 04:55 Bld Gas Analysis Time 232403/16/17 23:25 Sample Site LEFT RADIAL 03/16/17 23:25 ABG pH 7.37 (7.35-7.45) 03/16/17 23:25 ABG pCO2 41 mmHg (34-45) 03/16/17 23:25 ABG pO2 82 mmHg (80-100) 03/16/17 23:25 ABG HCO3 22.9 mmol/L (22.0-26.0) 03/16/17 23:25 ABG Total CO2 24.1 MMOL/L (21.0-29.0) 03/16/17 23:25 ABG O2 Saturation 96 % (94-98) 03/16/17 23:25 ABG Oximetry Spot Check 97 % 03/16/17 23:25 ABG Base Excess -2.2 mmol/L (-2.0-3.0) L 03/16/17 23:25 Juan Test POSITIVE 03/16/17 23:25 Respiration Rate 16 b/min 03/16/17 23:25 O2 Delivery Device BiPAP 03/16/17 23:25 Vent Mode SYNCHRONOUS/TIMES 03/16/17 23:25 FiO2 45.00 03/16/17 23:25 EPAP 5 cmH2O 03/16/17 23:25 IPAP 12 cmH2O 03/16/17 23:25 Sodium 134 mmol/L (135-145) L 03/19/17 05:13 Potassium 4.2 mmol/L (3.5-5.0) 03/19/17 05:13 Chloride 96 mmol/L (101-111) L 03/19/17 05:13 Carbon Dioxide 29 mmol/L (21-32) 03/19/17 05:13 Anion Gap 9.0 (6-13) 03/19/17 05:13 BUN 19 mg/dL (6-20) 03/19/17 05:13 Creatinine 0.6 mg/dL (0.6-1.2) 03/19/17 05:13 Estimated GFR (MDRD) 138 (>89) 03/19/17 05:13 Glucose 159 mg/dL (70-100) H 03/19/17 05:13 Calcium 8.4 mg/dL (8.5-10.3) L 03/19/17 05:13 Magnesium 2.2 mg/dL (1.7-2.8) 03/18/17 04:53 Total Bilirubin 0.5 mg/dL (0.2-1.0) 03/19/17 05:13 AST 12 IU/L (10-42) 03/19/17 05:13 ALT 17 IU/L (10-60) 03/19/17 05:13 Alkaline Phosphatase 53 IU/L (42-121) 03/19/17 05:13 B-Natriuretic Peptide 259 pg/mL (5-100) H 03/16/17 16:54 Total Protein 6.2 g/dL (6.7-8.2) L 03/19/17 05:13 Albumin 2.9 g/dL (3.2-5.5) L 03/19/17 05:13 Globulin 3.3 g/dL (2.1-4.2) 03/19/17 05:13 Albumin/Globulin Ratio 0.9 (1.0-2.2) L 03/19/17 05:13 Lipase 15 U/L (22-51) L 03/16/17 16:54 Urine Color YELLOW 03/17/17 02:32 Urine Clarity CLEAR (CLEAR) 03/17/17 02:32 Urine pH 5.0 PH (5.0-7.5) 03/17/17 02:32 Ur Specific [place] 1.025 (1.002-1.030) 03/17/17 02:32 Urine Protein NEGATIVE mg/dL (NEGATIVE) 03/17/17 02:32 Urine Glucose (UA) NEGATIVE mg/dL (NEGATIVE) 03/17/17 02:32 Urine Ketones 15 mg/dL (NEGATIVE) H 03/17/17 02:32 Urine Occult Blood NEGATIVE (NEGATIVE) 03/17/17 02:32 Urine Nitrite NEGATIVE (NEGATIVE) 03/17/17 02:32 Urine Bilirubin NEGATIVE (NEGATIVE) 03/17/17 02:32 Urine Urobilinogen 0.2 (NORMAL) E.U./dL (NORMAL) 03/17/17 02:32 Ur Leukocyte Esterase NEGATIVE (NEGATIVE) 03/17/17 02:32 Ur Microscopic Review NOT INDICATED 03/17/17 02:32 Urine Culture Comments NOT INDICATED 03/17/17 02:32
[2017-03-19] MEDS: LORazepam 2 MG/ML SYRINGE IVP PRN (18:21)
[2017-03-19] MEDS: levoFLOXacin 750 MG/150 ML 750 MG/150 ML BAG IV SCH (22:07)
[2017-03-19] MEDS ORDERED: ALBUTEROL NEB 2.5 MG/3 ML INH PRN (22:16)
[2017-03-20] MEDS: methylPREDNISolone SUCCINATE 40 MG/ML VIAL IVP SCH ×5 (00:39→23:39)
[2017-03-20] MEDS: oxyCODONE 5 MG TABLET PO PRN ×5 (03:47→22:38)
[2017-03-20 05:46] LABS: HCT - HEMATOCRIT 31.2 % (42.0-52.0); HGB - HEMOGLOBIN 10.4 g/dL (14.0-18.0); LYMPHOCYTES # (AUTO) 0.1 10^3/uL (1.5-3.5); LYMPHOCYTES % (AUTO) 1.9 %; MEAN CORPUSCULAR HEMOGLOBIN 28.8 pg (27.0-31.0); MEAN CORPUSCULAR HGB CONC 33.5 g/dL (32.0-36.0); MEAN CORPUSCULAR VOLUME 86.2 fL (80.0-94.0); MEAN PLATELET VOLUME 7.5 fL (7.4-11.4); MONOCYTES # (AUTO) 0.5 10^3/uL (0.0-1.0); MONOCYTES % (AUTO) 7.7 %; NEUTROPHILS # (AUTO) 6.2 10^3/uL (1.5-6.6); NEUTROPHILS % (AUTO) 90.4 %; NUCLEATED RED BLOOD CELLS AUTO 0.1 /100WBC; RED BLOOD COUNT 3.62 10^6/uL (4.70-6.10); RED CELL DISTRIBUTION WIDTH 18.6 % (12.0-15.0); UNCORRECTED WHITE BLOOD COUNT 6.8 x10^3/uL; WHITE BLOOD COUNT 6.8 x10^3/uL (4.8-10.8)
[2017-03-20 05:57] LABS: BILIRUBIN,TOTAL 0.5 mg/dL (0.2-1.0); CALCIUM 8.1 mg/dL (8.5-10.3); CREATININE 0.5 mg/dL (0.6-1.2); POTASSIUM 3.8 mmol/L (3.5-5.0); TOTAL PROTEIN 5.5 g/dL (6.7-8.2)
[2017-03-20] MEDS: GABAPENTIN 300 MG CAPSULE PO SCH ×3 (06:00→21:18)
[2017-03-20] MEDS: SODIUM CHLORIDE FLUSH 0.9% 10 ML SYRINGE IVP SCH ×3 (06:02→21:18)
[2017-03-20 06:40] LABS: PLATELET ESTIMATE, MANUAL NORMAL (130-450,000) (NORMAL); PLATELET MORPHOLOGY NORMAL APPEARANCE (NORMAL)
[2017-03-20] MEDS: FAMOTIDINE 20 MG TABLET PO SCH (08:09)
[2017-03-20] MEDS: CEFEPIME 2 GM in SODIUM CHLORIDE 0.9% MINIBAG 100 ML IV SCH ×2 (08:09→21:17)
[2017-03-20] MEDS: ENOXAPARIN 40 MG/0.4 ML SYRINGE SUBQ SCH (08:09)
[2017-03-20] MEDS: SACCHAROMYCES BOULARDII 250 MG CAPSULE PO SCH ×2 (08:09→17:39)
[2017-03-20] MEDS: IPRATROPIUM/ALBUTEROL 3 ML NEB INH SCH ×3 (09:10→19:37)
--- NOTE | 2017-03-20 16:43 | PROVIDER PROGRESS NOTE ---
Assessment/Plan - Problem List (1) Acute respiratory failure with hypoxia Assessment/Plan: Resolved down to 5L of O2 on oxymizer today Off BiPAP CTA negative for PE (2) HCAP (healthcare-associated pneumonia) Assessment/Plan: Patient on IV levaquin and cefepime day 5 Improving slowly Still has cough and requiring 5L of O2 Wean down O2 Continue abx (3) COPD exacerbation Assessment/Plan: Secondary to HCAP and cancer On duonebs, albuterol nebs, IV steroids and abx Improving slowly Wean down O2 Lungs still with wheezing (4) Pulmonary edema Qualifiers: Chronicity: acute Qualified Code(s): J81.0 - Acute pulmonary edema Assessment/Plan: Echo showed normal EF Resolved with IV lasix (5) Lung cancer Qualifiers: Laterality: unspecified laterality Lung location: overlapping sites Qualified Code(s): C34.80 - Malignant neoplasm of overlapping sites of unspecified bronchus and lung Assessment/Plan: Stable With mets Will need to continue to follow up as outpatient (6) Chronic pain Qualifiers: Chronic pain type: due to neoplasm Qualified Code(s): G89.3 - Neoplasm related pain (acute) (chronic) Assessment/Plan: Secondary to cancer controlled on oxycodone (7) Prophylactic use of low molecular weight heparin for venous thromboembolism (VTE) Assessment/Plan: On lovenox - Current Meds Current Meds: Current Medications Generic Name Dose Route Start Last Admin Trade Name Freq PRN Reason Stop Dose Admin Acetaminophen 650 mg 03/16/17 22:03 03/18/17 14:28 Tylenol PO 650 mg Q4HR PRN Administration Pain 1 to 4 Albuterol/Ipratropium 3 ml 03/20/17 07:00 03/20/17 15:06 Duoneb INH 3 ml RTTID DANIELA Administration Enoxaparin Sodium 40 mg 03/17/17 09:00 03/20/17 08:09 Lovenox SUBQ 40 mg DAILY DANIELA Administration Famotidine 20 mg 03/17/17 09:00 03/20/17 08:09 Pepcid PO 20 mg DAILY DANIELA Administration Gabapentin 600 mg 03/18/17 11:00 03/20/17 14:38 Neurontin PO 600 mg TID DANIELA Administration Cefepime HCl 2 gm/ Sodium 100 mls @ 200 mls/hr 03/17/17 09:00 03/20/17 08:39 Chloride IV Infused BID DANIELA Infusion Levofloxacin 750 mg in 150 mls @ 100 mls/hr 03/17/17 23:00 03/19/17 23:37 Levaquin 750 Mg/150 Ml IV Infused Q24H DANIELA Infusion Lorazepam 1 mg 03/17/17 17:28 03/19/17 18:21 Ativan Inj IVP 1 mg Q2HR PRN Administration Anxiety Methylprednisolone 40 mg 03/17/17 00:00 03/20/17 14:39 Solu-Medrol (40mg Vial) IVP 40 mg Q6HR DANIELA Administration Morphine Sulfate 2 mg 03/18/17 09:16 03/18/17 16:02 Morphine IVP 2 mg Q2H PRN Administration PAIN Oxycodone HCl 5 mg 03/16/17 22:03 03/20/17 14:38 Roxicodone PO 5 mg Q4HR PRN Administration Pain 5 to 7 Oxycodone HCl 10 mg 03/16/17 22:03 03/19/17 18:22 Roxicodone PO 10 mg Q4HR PRN Administration Pain 8 to 10 Saccharomyces Boulardii 250 mg 03/17/17 08:00 03/20/17 08:09 Florastor PO 250 mg BIDWM DANIELA Administration Sodium Chloride 10 ml 03/17/17 06:00 03/20/17 14:39 Normal Saline Flush 0.9% IVP 10 ml Q8HR DANIELA Administration Sodium Chloride 10 ml 03/16/17 22:03 03/19/17 20:25 Normal Saline Flush 0.9% IVP 10 ml PRN PRN Administration NEEDED PER PROVIDER ORDERS - Lab Result Lab results reviewed: Yes Fish Bone Diagrams: 03/20/17 05:15 03/20/17 05:15 - Diagnostic Imaging Results Diagnostic Imaging Results: Final report reviewed - Additional Planning Condition/Complexity: Guarded My Orders: My Active Orders 03/19/17 22:16 Albuterol 2.5 mg INH RTQ4H PRN 03/20/17 07:00 Ipratropium/Albuterol [Duoneb] 3 ml INH RTTID Plan Discussed with:: Patient, Family Time Spent: 31-60 minutes Subjective - Subjective Patient Reports: Chest Pain (Chronic from cancer), Shortness of Breath (Still short of breath especially with exertion. Improving since admission.), Other ( No fevers.) Nursing Reports: No Complaints Objective Vital Signs: Vital Signs - 24 hr 03/19/17 03/19/17 03/20/17 20:40 22:20 00:35 Temperature 36.5 C 36.4 C L Heart Rate 105 H Heart Rate [ 107 H 99 Brachial] Respiratory 18 20 18 Rate Blood Pressure 123/71 114/73 [Right Brachial artery] O2 Saturation 98 96 03/20/17 03/20/17 03/20/17 04:09 08:14 09:10 Temperature 36.7 C 37.0 C Heart Rate 108 H Heart Rate [ 105 H 98 Brachial] Respiratory 18 16 14 Rate Blood Pressure 126/86 H 124/88 H [Right Brachial artery] O2 Saturation 96 94 03/20/17 03/20/17 13:00 15:06 Temperature 36.6 C Heart Rate 102 H Heart Rate [ 104 H Brachial] Respiratory 16 24 Rate Blood Pressure 117/80 [Right Brachial artery] O2 Saturation 92 Oxygen O2 Source Nasal cannula I&O (Last 24 Hrs): Intake and Output Totals x24h 03/18/17 03/19/17 03/20/17 23:59 23:59 23:59 Intake Total 1900 1736 560 Output Total 1100 1200 600 Balance 800 536 -40 General: Alert, Oriented x3, Cooperative HEENT: Atraumatic, PERRLA, EOMI, Mucous membr. moist/pink Neck: Supple, No JVD, No thyromegaly, +2 carotid pulse wo bruit, No LAD Lymphatic: no adenopathy Neuro: Alert, Non Focal, CN 2-12 Grossly Intact, Oriented Times 3 Cardiovascular: Regular rate, Normal S1, Normal S2, No murmurs Respiratory: Chest non-tender, No respiratory distress, Wheezes, Rales, Rhonchi Abdomen: Normal bowel sounds, Soft, No tenderness, No hepatospenomegaly Extremities: No clubbing, No cyanosis, No edema, Normal pulses, No tenderness/ swelling Skin: No rashes, No breakdown - Results Results: Laboratory Results WBC 6.8 x10^3/uL (4.8-10.8) 03/20/17 05:15 RBC 3.62 10^6/uL (4.70-6.10) L 03/20/17 05:15 Hgb 10.4 g/dL (14.0-18.0) L 03/20/17 05:15 Hct 31.2 % (42.0-52.0) L 03/20/17 05:15 MCV 86.2 fL (80.0-94.0) 03/20/17 05:15 MCH 28.8 pg (27.0-31.0) 03/20/17 05:15 MCHC 33.5 g/dL (32.0-36.0) 03/20/17 05:15 RDW 18.6 % (12.0-15.0) H 03/20/17 05:15 Plt Count 335 10^3/uL (130-450) 03/20/17 05:15 MPV 7.5 fL (7.4-11.4) 03/20/17 05:15 Neut # 6.2 10^3/uL (1.5-6.6) 03/20/17 05:15 Lymph # 0.1 10^3/uL (1.5-3.5) L 03/20/17 05:15 [facility] # 0.5 10^3/uL (0.0-1.0) 03/20/17 05:15 Eos # 0.0 10^3/uL (0.0-0.7) 03/20/17 05:15 Baso # 0.0 10^3/uL (0.0-0.1) 03/20/17 05:15 Absolute Nucleated RBC 0.00 x10^3/uL 03/20/17 05:15 Total Counted 100 03/18/17 04:53 Band Neuts % (Manual) 2 % (0-10) 03/18/17 04:53 Nucleated RBC % 0.1 /100WBC 03/20/17 05:15 Neutrophils # (Manual) 7.3 10^3/uL (1.5-6.6) H 03/18/17 04:53 Lymphocytes # (Manual) 0.1 10^3/uL (1.5-3.5) L 03/18/17 04:53 Monocytes # (Manual) 0.3 10^3/uL (0.0-1.0) 03/18/17 04:53 Differential Comment MANUAL DIFFERENTIAL 03/18/17 04:53 Manual Slide Review Indicated 03/20/17 05:15 Platelet Estimate NORMAL (130-450,000) (NORMAL) 03/20/17 05:15 Platelet Morphology NORMAL APPEARANCE (NORMAL) 03/20/17 05:15 RBC Morph Micro Appear NORMAL APPEARANCE (NORMAL) 03/20/17 05:15 PT 15.2 secs (9.9-12.6) H 03/17/17 04:55 INR 1.3 (0.8-1.2) H 03/17/17 04:55 Bld Gas Analysis Time 232403/16/17 23:25 Sample Site LEFT RADIAL 03/16/17 23:25 ABG pH 7.37 (7.35-7.45) 03/16/17 23:25 ABG pCO2 41 mmHg (34-45) 03/16/17 23:25 ABG pO2 82 mmHg (80-100) 03/16/17 23:25 ABG HCO3 22.9 mmol/L (22.0-26.0) 03/16/17 23:25 ABG Total CO2 24.1 MMOL/L (21.0-29.0) 03/16/17 23:25 ABG O2 Saturation 96 % (94-98) 03/16/17 23:25 ABG Oximetry Spot Check 97 % 03/16/17 23:25 ABG Base Excess -2.2 mmol/L (-2.0-3.0) L 03/16/17 23:25 Juan Test POSITIVE 03/16/17 23:25 Respiration Rate 16 b/min 03/16/17 23:25 O2 Delivery Device BiPAP 03/16/17 23:25 Vent Mode SYNCHRONOUS/TIMES 03/16/17 23:25 FiO2 45.00 03/16/17 23:25 EPAP 5 cmH2O 03/16/17 23:25 IPAP 12 cmH2O 03/16/17 23:25 Sodium 138 mmol/L (135-145) 03/20/17 05:15 Potassium 3.8 mmol/L (3.5-5.0) 03/20/17 05:15 Chloride 97 mmol/L (101-111) L 03/20/17 05:15 Carbon Dioxide 32 mmol/L (21-32) 03/20/17 05:15 Anion Gap 9.0 (6-13) 03/20/17 05:15 BUN 21 mg/dL (6-20) H 03/20/17 05:15 Creatinine 0.5 mg/dL (0.6-1.2) L 03/20/17 05:15 Estimated GFR (MDRD) 171 (>89) 03/20/17 05:15 Glucose 189 mg/dL (70-100) H 03/20/17 05:15 Calcium 8.1 mg/dL (8.5-10.3) L 03/20/17 05:15 Magnesium 2.2 mg/dL (1.7-2.8) 03/18/17 04:53 Total Bilirubin 0.5 mg/dL (0.2-1.0) 03/20/17 05:15 AST 14 IU/L (10-42) 03/20/17 05:15 ALT 18 IU/L (10-60) 03/20/17 05:15 Alkaline Phosphatase 52 IU/L (42-121) 03/20/17 05:15 B-Natriuretic Peptide 259 pg/mL (5-100) H 03/16/17 16:54 Total Protein 5.5 g/dL (6.7-8.2) L 03/20/17 05:15 Albumin 2.7 g/dL (3.2-5.5) L 03/20/17 05:15 Globulin 2.8 g/dL (2.1-4.2) 03/20/17 05:15 Albumin/Globulin Ratio 1.0 (1.0-2.2) 03/20/17 05:15 Lipase 15 U/L (22-51) L 03/16/17 16:54 Urine Color YELLOW 03/17/17 02:32 Urine Clarity CLEAR (CLEAR) 03/17/17 02:32 Urine pH 5.0 PH (5.0-7.5) 03/17/17 02:32 Ur Specific [place] 1.025 (1.002-1.030) 03/17/17 02:32 Urine Protein NEGATIVE mg/dL (NEGATIVE) 03/17/17 02:32 Urine Glucose (UA) NEGATIVE mg/dL (NEGATIVE) 03/17/17 02:32 Urine Ketones 15 mg/dL (NEGATIVE) H 03/17/17 02:32 Urine Occult Blood NEGATIVE (NEGATIVE) 03/17/17 02:32 Urine Nitrite NEGATIVE (NEGATIVE) 03/17/17 02:32 Urine Bilirubin NEGATIVE (NEGATIVE) 03/17/17 02:32 Urine Urobilinogen 0.2 (NORMAL) E.U./dL (NORMAL) 03/17/17 02:32 Ur Leukocyte Esterase NEGATIVE (NEGATIVE) 03/17/17 02:32 Ur Microscopic Review NOT INDICATED 03/17/17 02:32 Urine Culture Comments NOT INDICATED 03/17/17 02:32
[2017-03-20] MEDS: SODIUM CHLORIDE FLUSH 0.9% 10 ML SYRINGE IVP PRN ×4 (18:34→23:43)
[2017-03-20] MEDS: NYSTATIN 500000 UNITS/5 ML UDC PO SCH ×2 (18:35→21:18)
[2017-03-20] MEDS: MORPHINE 2 MG/ML SYRINGE IVP PRN (21:22)
[2017-03-20] MEDS: levoFLOXacin 750 MG/150 ML 750 MG/150 ML BAG IV SCH (22:18)
[2017-03-21] MEDS: SODIUM CHLORIDE FLUSH 0.9% 10 ML SYRINGE IVP PRN (00:12)
[2017-03-21] MEDS: oxyCODONE 5 MG TABLET PO PRN ×3 (02:12→09:36)
[2017-03-21 03:39] LABS: BASOPHILS % (AUTO) 0.1 %; HCT - HEMATOCRIT 30.3 % (42.0-52.0); HGB - HEMOGLOBIN 10.3 g/dL (14.0-18.0); LYMPHOCYTES % (AUTO) 1.9 %; MEAN CORPUSCULAR HEMOGLOBIN 28.3 pg (27.0-31.0); MEAN CORPUSCULAR HGB CONC 33.8 g/dL (32.0-36.0); MEAN CORPUSCULAR VOLUME 83.5 fL (80.0-94.0); MEAN PLATELET VOLUME 7.2 fL (7.4-11.4); RED BLOOD COUNT 3.63 10^6/uL (4.70-6.10); RED CELL DISTRIBUTION WIDTH 18.5 % (12.0-15.0); UNCORRECTED WHITE BLOOD COUNT 7.3 x10^3/uL; WHITE BLOOD COUNT 7.3 x10^3/uL (4.8-10.8)
[2017-03-21 03:44] LABS: ALBUMIN/GLOBULIN RATIO 0.9 (1.0-2.2); BILIRUBIN,TOTAL 0.3 mg/dL (0.2-1.0); CALCIUM 7.8 mg/dL (8.5-10.3); CREATININE 0.6 mg/dL (0.6-1.2); POTASSIUM 3.9 mmol/L (3.5-5.0); TOTAL PROTEIN 5.4 g/dL (6.7-8.2)
[2017-03-21 04:15] LABS: BAND NEUTROPHILS % (MANUAL) 6 %; LYMPHOCYTES % (MANUAL) 1 %; NEUTROPHILS % (MANUAL) 91 %; TOTAL CELLS COUNTED 100
[2017-03-21 04:16] LABS: NP AUTO DIFFERENTIAL? YES; NP MAN DIFFERENTIAL? NO; PLATELET ESTIMATE, MANUAL NORMAL (130-450,000) (NORMAL); PLATELET MORPHOLOGY NORMAL APPEARANCE (NORMAL)
[2017-03-21] MEDS: GABAPENTIN 300 MG CAPSULE PO SCH (05:49)
[2017-03-21] MEDS: methylPREDNISolone SUCCINATE 40 MG/ML VIAL IVP SCH ×2 (05:49→12:34)
[2017-03-21] MEDS: SODIUM CHLORIDE FLUSH 0.9% 10 ML SYRINGE IVP SCH (05:49)
[2017-03-21] MEDS: IPRATROPIUM/ALBUTEROL 3 ML NEB INH SCH ×2 (07:20→12:42)
[2017-03-21 07:55] VITALS: BP 129/86
[2017-03-21] MEDS: SACCHAROMYCES BOULARDII 250 MG CAPSULE PO SCH (09:36)
[2017-03-21] MEDS: FAMOTIDINE 20 MG TABLET PO SCH (09:36)
[2017-03-21] MEDS: NYSTATIN 500000 UNITS/5 ML UDC PO SCH ×3 (09:37→12:34)
[2017-03-21] MEDS: ENOXAPARIN 40 MG/0.4 ML SYRINGE SUBQ SCH (09:37)
[2017-03-21] MEDS: CEFEPIME 2 GM in SODIUM CHLORIDE 0.9% MINIBAG 100 ML IV SCH (09:37)
--- NOTE | 2017-03-21 11:19 | Discharge Plan ---
Discharge Plan Disposition: Home, Self Care Condition: Fair Prescriptions: Fluticasone/Salmeterol [Advair 250-50 Diskus] 1 each IH BID #1 blst.w.dev Levofloxacin [Levaquin] 500 mg PO DAILY #5 tablet Prednisone 10 mg PO DAILY #61 tablet Diet: Regular Activity Restrictions: Activity as Tolerated Shower Restrictions: No Driving Restrictions: No Weight Bearing: Full Weight Additional Instructions or Follow Up instructions: Please complete your prednisone taper as instructed and take antibioitcs for5 additional days. You can follow up with your oncologist once you have completed treatment for your pneumonia. I have prescribed you a new inhaler that I want you to take twice a day everyday. This should help to keep your COPD stable. I would also like you to continue to use your oxygen at home. No Smoking: If you smoke, Please STOP! Call for help. Follow-up with: Magen Zhao MD [Primary Care Provider] -
--- NOTE | 2017-03-21 16:27 | DISCHARGE SUMMARY ---
Discharge Summary Admit Date: 03/16/17 Discharge Date: 03/21/17 Discharging Provider: Sky Steel MD Primary Care Provider: Magen Zhao Code Status: Attempt Resuscitation Condition at Discharge: Fair Discharge Disposition: 01 Home, Self Care - DIAGNOSES Admission Diagnoses: 1. Acute respiratory failure with hypoxia 2. Healthcare associated pneumonia 3. COPD exacerbation 4. Pulmonary edema 5. Lung cancer 6. Chronic pain 7. Prophylactic use of low molecular weight heparin for venous thromboembolism Discharge Diagnoses with Status of Each Condition: 1. Acute respiratory failure with hypoxia: Resolved 2. Healthcare associated pneumonia: Improving 3. COPD exacerbation: Stable 4. Pulmonary edema: Resolved 5. Lung cancer: Stable 6. Chronic pain: Stable - HPI History of Present Illness: Patient is an unfortunate 57-year-old gentleman who was diagnosed with lung cancer in 2016 and was found to have metastatic disease in both lungs with history of heavy tobacco abuse who has since quit the patient was admitted recently 3 weeks ago for acute respiratory failure secondary to COPD exacerbation requiring BiPAP he presents to emergency department today with increasing shortness of breath. The patient states that symptoms started about a week ago and he has been having increasing shortness of breath with wheezing ever since. The patient states that after discharge from the hospital on 2016 the patient completed his antibiotics and steroids he was feeling much better than about a week ago he began having difficulty breathing. He states that he was taking his inhalers at home but they were not doing him any good. He states that today his shortness of breath became so severe he could not walk to his car and finally decided he needed to come into the emergency department. The patient states that with walking 10 feet he becomes severely short of breath. The patient is on home oxygen 2 L and had to bump up to 3 L prior to coming into the emergency department. The patient states that he has been having significant wheezing the last day. Patient denies any fevers or chills, he denies any upper respiratory symptoms. Patient states his last chemotherapy treatment was over a month ago. Patient denies having had any sick contacts. Patient denies any headaches, blurred vision, runny nose, sore throat, chest pain, abdominal pain, nausea, vomiting, diarrhea, constipation, urinary urgency , urinary frequency, dysuria, joint pain, muscle aches, neck stiffness, back pain, patient does admit to right clavicular pain which is been there since he was diagnosed with the cancer, he admits to weight loss and decreased appetite. The patient denies any focal neurologic deficits. On presentation to the emergency department the patient was in severe respiratory distress using accessory muscles of breathing and tachypneic with increasing oxygen requirement. The patient received multiple back to back treatments, steroids and antibiotics in the emergency department patient had no significant improvement continue to have respiratory distress. The patient was placed on BiPAP and admitted to the intensive care unit. The patient's chest x- ray did show a left sided opacity concerning for pneumonia. Patient was admitted for acute respiratory failure with hypoxia. - HOSPITAL COURSE Hospital Course: Patient is a 77-year-old gentleman with a past medical history patient was initially admitted to the ICU and treated for acute respiratory failure with hypoxia. The patient was placed on BiPAP and treated with IV antibiotics, duo nebs, steroids and IV Lasix. The patient was able to be weaned off of the BiPAP and slowly improved over the next 5 days. Eventually the patient was weaned down to just 2 L of oxygen through nasal cannula which is his home dose. The patient was treated with 5 days of cefepime and Levaquin IV. The patient was discharged home on oral Levaquin for an additional 5 days. The patient was treated with duo nebs and IV Solu-Medrol and discharged home on a long prednisone taper. The patient was also prescribed Advair twice daily for his COPD. The patient did receive IV Lasix but this was stopped as his echo showed a normal ejection fraction. The patient will follow up with his oncologist regarding his lung cancer his treatment has been on hold for the last month due to recurrent illness and hospitalization for pneumonia and respiratory failure. The patient was discharged home in stable condition. (1) Acute respiratory failure with hypoxia Assessment/Plan: Initially placed on BiPAP but weaned off after treatment of HCAP and COPD exacerbation Resolved down to 2L NC at discharge CTA negative for PE (2) HCAP (healthcare-associated pneumonia) Assessment/Plan: Patient was on IV levaquin and cefepime x 5 days and discharged on PO Levaquin x 5 more days Improved down to baseline O2 requirement (3) COPD exacerbation Assessment/Plan: Secondary to HCAP and cancer On duonebs, albuterol nebs, IV steroids and abx Improved Discharged home with Prednisone taper, PO levaquin, advair BID and nebs prn Patient has home O2 uses 2L for 24 hours a day (4) Pulmonary edema Qualifiers: Chronicity: acute Qualified Code(s): J81.0 - Acute pulmonary edema Assessment/Plan: Echo showed normal EF Resolved with IV lasix (5) Lung cancer Qualifiers: Laterality: unspecified laterality Lung location: overlapping sites Qualified Code(s): C34.80 - Malignant neoplasm of overlapping sites of unspecified bronchus and lung Assessment/Plan: No outside imaging but appears to be spreading as there looks to be kidney and spine involvement. Will need to continue to follow up as outpatient once respiratory status is stable Patient may benefit from Palliative Care Consult. (6) Chronic pain Qualifiers: Chronic pain type: due to neoplasm Qualified Code(s): G89.3 - Neoplasm related pain (acute) (chronic) Assessment/Plan: Secondary to cancer controlled on oxycodone at home (7) Prophylactic use of low molecular weight heparin for venous thromboembolism (VTE) Assessment/Plan: On lovenox - ALLERGIES Allergies/Adverse Reactions: Allergies Allergy/AdvReac Type Severity Reaction Status Date / Time Penicillins Allergy Respiratory Verified 09/18/15 18:33 - MEDICATIONS Home Medications: Ambulatory Orders Medication Instructions Recorded Confirmed Ibuprofen 800 mg PO Q6HR 09/18/15 03/17/17 Albuterol Sulfate [Proair Hfa 2 puffs INH Q4H PRN 02/15/17 03/17/17 Inhaler] Gabapentin 600 mg PO TID 02/15/17 03/17/17 Hydrochlorothiazide 25 mg PO DAILY 02/15/17 03/17/17 Megestrol Acetate 10 - 20 ml PO DAILY 02/15/17 03/17/17 Temazepam 15 mg PO QPM 02/15/17 03/17/17 oxyCODONE [Roxicodone] 10 mg PO Q4H PRN 02/15/17 03/17/17 Ipratropium/Albuterol [Duoneb] 3 ml INH TID #90 neb 02/18/17 03/17/17 Fluticasone/Salmeterol [Advair 1 each IH BID #1 blst.w.dev 03/21/17 250-50 Diskus] Levofloxacin [Levaquin] 500 mg PO DAILY #5 tablet 03/21/17 Prednisone 10 mg PO DAILY #61 tablet 03/21/17 - PHYSICAL EXAM AT DISCHARGE General Appearance: positive: No acute distress, Alert Eyes Bilateral: positive: Normal inspection, PERRL, EOMI, No lid inflammation, Conjunctivae nml, No scleral icterus ENT: positive: ENT inspection nml, Pharynx nml, No signs of dehydration. negative: Purulent nasal drainage, Pharyngeal erythema, Oral lesions Neck: positive: Nml inspection, Thyroid nml, No JVD, Trachea midline. negative : Thyromegaly, Lymphadenopathy (R), Lymphadenopathy (L), Stiff neck, Carotid bruit, Tracheal deviation Respiratory: positive: Chest non-tender, No respiratory distress, Wheezes ( Scattered, improved), Rhonchi (Improved). negative: Rales Cardiovascular: positive: Regular rate & rhythm, No murmur, No gallop Peripheral Pulses: positive: 2+ Abdomen: positive: Non-tender, No organomegaly, Nml bowel sounds, No distention. negative: Guarding, Rebound, Hepatomegaly Back: positive: Nml inspection. negative: CVA tenderness (R), CVA tenderness (L ) Skin: positive: Color nml, No rash, Warm. negative: Cyanosis, Pallor Extremities: positive: Non-tender, Full ROM, Nml appearance, Pedal edema ( Bilateral) Neurologic/Psychiatric: positive: Oriented x3, CN's nml (2-12), Motor nml, Sensation nml, Mood/affect nml - LABS Result Diagrams: 03/21/17 03:27 03/21/17 03:27 Other Lab Results: Laboratory Results WBC 7.3 x10^3/uL (4.8-10.8) 03/21/17 03:27 RBC 3.63 10^6/uL (4.70-6.10) L 03/21/17 03:27 Hgb 10.3 g/dL (14.0-18.0) L 03/21/17 03:27 Hct 30.3 % (42.0-52.0) L 03/21/17 03:27 MCV 83.5 fL (80.0-94.0) 03/21/17 03:27 MCH 28.3 pg (27.0-31.0) 03/21/17 03:27 MCHC 33.8 g/dL (32.0-36.0) 03/21/17 03:27 RDW 18.5 % (12.0-15.0) H 03/21/17 03:27 Plt Count 341 10^3/uL (130-450) 03/21/17 03:27 MPV 7.2 fL (7.4-11.4) L 03/21/17 03:27 Neut # Not Reportable 03/21/17 03:27 Lymph # Not Reportable 03/21/17 03:27 [place] # Not Reportable 03/21/17 03:27 Eos # Not Reportable 03/21/17 03:27 Baso # Not Reportable 03/21/17 03:27 Absolute Nucleated RBC Not Reportable 03/21/17 03:27 Total Counted 100 03/21/17 03:27 Band Neuts % (Manual) 6 % (0-10) 03/21/17 03:27 Nucleated RBC % Not Reportable 03/21/17 03:27 Neutrophils # (Manual) 7.1 10^3/uL (1.5-6.6) H 03/21/17 03:27 Lymphocytes # (Manual) 0.1 10^3/uL (1.5-3.5) L 03/21/17 03:27 Monocytes # (Manual) 0.1 10^3/uL (0.0-1.0) 03/21/17 03:27 Differential Comment MANUAL DIFFERENTIAL 03/21/17 03:27 Manual Slide Review Indicated 03/20/17 05:15 Platelet Estimate NORMAL (130-450,000) (NORMAL) 03/21/17 03:27 Platelet Morphology NORMAL APPEARANCE (NORMAL) 03/21/17 03:27 RBC Morph Micro Appear NORMAL APPEARANCE (NORMAL) 03/21/17 03:27 PT 15.2 secs (9.9-12.6) H 03/17/17 04:55 INR 1.3 (0.8-1.2) H 03/17/17 04:55 Bld Gas Analysis Time 232403/16/17 23:25 Sample Site LEFT RADIAL 03/16/17 23:25 ABG pH 7.37 (7.35-7.45) 03/16/17 23:25 ABG pCO2 41 mmHg (34-45) 03/16/17 23:25 ABG pO2 82 mmHg (80-100) 03/16/17 23:25 ABG HCO3 22.9 mmol/L (22.0-26.0) 03/16/17 23:25 ABG Total CO2 24.1 MMOL/L (21.0-29.0) 03/16/17 23:25 ABG O2 Saturation 96 % (94-98) 03/16/17 23:25 ABG Oximetry Spot Check 97 % 03/16/17 23:25 ABG Base Excess -2.2 mmol/L (-2.0-3.0) L 03/16/17 23:25 Juan Test POSITIVE 03/16/17 23:25 Respiration Rate 16 b/min 03/16/17 23:25 O2 Delivery Device BiPAP 03/16/17 23:25 Vent Mode SYNCHRONOUS/TIMES 03/16/17 23:25 FiO2 45.00 03/16/17 23:25 EPAP 5 cmH2O 03/16/17 23:25 IPAP 12 cmH2O 03/16/17 23:25 Sodium 134 mmol/L (135-145) L 03/21/17 03:27 Potassium 3.9 mmol/L (3.5-5.0) 03/21/17 03:27 Chloride 96 mmol/L (101-111) L 03/21/17 03:27 Carbon Dioxide 32 mmol/L (21-32) 03/21/17 03:27 Anion Gap 6.0 (6-13) 03/21/17 03:27 BUN 20 mg/dL (6-20) 03/21/17 03:27 Creatinine 0.6 mg/dL (0.6-1.2) 03/21/17 03:27 Estimated GFR (MDRD) 138 (>89) 03/21/17 03:27 Glucose 235 mg/dL (70-100) H 03/21/17 03:27 Calcium 7.8 mg/dL (8.5-10.3) L 03/21/17 03:27 Magnesium 2.2 mg/dL (1.7-2.8) 03/18/17 04:53 Total Bilirubin 0.3 mg/dL (0.2-1.0) 03/21/17 03:27 AST 13 IU/L (10-42) 03/21/17 03:27 ALT 20 IU/L (10-60) 03/21/17 03:27 Alkaline Phosphatase 48 IU/L (42-121) 03/21/17 03:27 B-Natriuretic Peptide 259 pg/mL (5-100) H 03/16/17 16:54 Total Protein 5.4 g/dL (6.7-8.2) L 03/21/17 03:27 Albumin 2.6 g/dL (3.2-5.5) L 03/21/17 03:27 Globulin 2.8 g/dL (2.1-4.2) 03/21/17 03:27 Albumin/Globulin Ratio 0.9 (1.0-2.2) L 03/21/17 03:27 Lipase 15 U/L (22-51) L 03/16/17 16:54 Urine Color YELLOW 03/17/17 02:32 Urine Clarity CLEAR (CLEAR) 03/17/17 02:32 Urine pH 5.0 PH (5.0-7.5) 03/17/17 02:32 Ur Specific [place] 1.025 (1.002-1.030) 03/17/17 02:32 Urine Protein NEGATIVE mg/dL (NEGATIVE) 03/17/17 02:32 Urine Glucose (UA) NEGATIVE mg/dL (NEGATIVE) 03/17/17 02:32 Urine Ketones 15 mg/dL (NEGATIVE) H 03/17/17 02:32 Urine Occult Blood NEGATIVE (NEGATIVE) 03/17/17 02:32 Urine Nitrite NEGATIVE (NEGATIVE) 03/17/17 02:32 Urine Bilirubin NEGATIVE (NEGATIVE) 03/17/17 02:32 Urine Urobilinogen 0.2 (NORMAL) E.U./dL (NORMAL) 03/17/17 02:32 Ur Leukocyte Esterase NEGATIVE (NEGATIVE) 03/17/17 02:32 Ur Microscopic Review NOT INDICATED 03/17/17 02:32 Urine Culture Comments NOT INDICATED 03/17/17 02:32 - DIAGNOSTIC IMAGING Diagnostic Imaging Results: Final report reviewed Diagnostic Imaging Results Comments: Chest x-ray Impression: New airspace opacification in the left lung. Differential diagnoses including pulmonary edema, pneumonia, aspiration or pulmonary hemorrhage. CT angiogram lungs Impression: 1. No definite pulmonary embolism. Smaller subsegmental branches are difficult to assess on this study. 2. There is abnormal soft tissue at the right hilum with pleural and parenchymal consolidation within the right upper lobe with volume loss. This likely corresponds to the primary malignancy. 3. Extensive interstitial and airspace abnormality. This may represent a combination of edema, infection, and/or metastasis. 4. Status post placement of an IVC stent. Collateral pathways results in opacification of the vein of Ricky be with dense contrast material within segment 4B. 5. There is an apparent enhancing mass measuring 2.5 cm within the anterior aspect of the left mid kidney. Comparison and correlation with any outside institution studies would be helpful. Otherwise this could be further assessed with renal MRI without and with contrast non-emergent outpatient basis. 6. Infiltrative mediastinal lymphadenopathy, along the right paratracheal as well as pre-cranial region. 7. Lesion noted within the L1 vertebral body with mild compression deformity. - FOLLOW UP Follow Up: Patient will complete a course of antibiotics with Levaquin. He will get a taper he will also complete a taper of prednisone to treat COPD and healthcare associated pneumonia. The patient has been started on Advair twice daily. He will continue on duo nebs and his inhaler as needed. The patient will follow up with his oncologist regarding his lung cancer with metastasis. - TIME SPENT Time Spent in Discharge (Minutes): 50
== END 2017-03-21 13:04 | disposition home or self-care (01) | DRG 189 ==
LOC: EDUNIT# → ED 16:01 → ICU 22:03 → MS2 03-18 13:41
PROVIDERS: ADMIT Internal Medicine; ATTEND Internal Medicine
DX: J96.01 Acute respiratory failure with hypoxia (principal); J18.9 Pneumonia, unspecified organism; J44.0 Chronic obstructive pulmonary disease with (acute) lower respiratory infection; J44.1 Chronic obstructive pulmonary disease with (acute) exacerbation; J81.1 Chronic pulmonary edema; C34.80 Malignant neoplasm of overlapping sites of unspecified bronchus and lung; C78.02 Secondary malignant neoplasm of left lung; C78.01 Secondary malignant neoplasm of right lung; G89.3 Neoplasm related pain (acute) (chronic); F41.9 Anxiety disorder, unspecified; Z87.891 Personal history of nicotine dependence; Z79.51 Long term (current) use of inhaled steroids; Z79.891 Long term (current) use of opiate analgesic; Z79.52 Long term (current) use of systemic steroids; Z79.1 Long term (current) use of non-steroidal anti-inflammatories (NSAID); Z95.828 Presence of other vascular implants and grafts; Z99.81 Dependence on supplemental oxygen
CPT/HCPCS: 36415; 36600; 71010; 71275; 80053; 81001; 81003; 82803; 83690; 83735; 83880; 85025; 85610; 87086; 87150; 93005; 93306; 94640; 94660; 94761; 96365; 96375; 96376; 99284; 99285

== ENCOUNTER 2017-04-12 14:53 | Outpatient (CLI) | payer MEDICAID ==
--- NOTE | 2017-04-13 11:45 | XRAY Report ---
TWO VIEW CHEST: 04/12/2017 COMPARISON: Chest CT of 03/17/2017. INDICATION: Respiratory crackles and dyspnea at rest. TECHNIQUE: Two views of the chest. FINDINGS: Again seen is a right perihilar and right apical mass with apical pleural thickening. There is additi onal pleural thickening at the right lung base with stable persistent right volume loss. Again seen is diffuse interstitial and air space disease which is somewhat improved from the prior CT . No pneumothorax or obvious pleural effusion in other regards. Stable appearance of the mediastinum otherwise. IMPRESSION: 1. PERSISTENT RIGHT PERIHILAR AND APICAL MASS. 2. PERSISTENT DIFFUSE INTERSTITIAL AND AIR SPACE DISEASE OF THE LUNGS, SOMEWHAT IMPROVED COMPARED TO PRIOR CT. CORRELATE CLINICALLY. JOB #: [id number] [id number] JOB #:[id number]
== END 2017-04-12 14:54 | disposition home or self-care (01) ==
LOC: DI.N 14:53
PROVIDERS: ATTEND Physician Assistant Medical
DX: R91.8 Other nonspecific abnormal finding of lung field (principal)
CPT/HCPCS: 71020

== ENCOUNTER 2017-05-29 08:17 | Outpatient (CLI) | payer MEDICAID | END 2017-05-29 08:18 | disposition home or self-care (01) | LOC: EMS 08:17 | PROVIDERS: ATTEND Surgery ==